=== PATIENT | male | born 1980 | race Caucasian/White ===

== ENCOUNTER 2021-01-19 20:55 | Emergency (ER) | payer SELFPAY ==
[~2021-01-19] VITALS: Ht 177.8 cm; Wt 81.6 kg
--- NOTE | 2021-01-19 21:05 | NUR ---
PATIENT BIBRA 88 C/O MIDEPIGASTRIC PAIN S/P "GETTING BENADRYL AND HALDOL SHOT" FROM [facility]. PATIENT IS A/O X 4, RR EVEN AND UNLABORED, NO SOB NOTED. PATIENT CONNECTED TO CARDIAC AND POX MONITOR.
[2021-01-19] MEDS ORDERED: LIDOCAINE VISCOUS 2% UD 15 ML UDC MM ONE (21:30)
[2021-01-19] MEDS ORDERED: MAG HYDROX/AL HYDROX/SIMETH 30 ML UDC PO ONE (21:30)
[2021-01-19] MEDS ORDERED: NAPROXEN 250 MG TABLET PO ONE (21:30)
[2021-01-19] MEDS ORDERED: FAMOTIDINE/PF INJ 20 MG/2 ML VIAL IV ONE ×2 (21:30→21:38)
--- NOTE | 2021-01-19 21:30 | NUR ---
EMT AT BEDSIDE FOR EKG.
[2021-01-19] MEDS ORDERED: MAG HYDROX/AL HYDROX/SIMETH 30 ML UDC ONE (21:37)
[2021-01-19] MEDS ORDERED: LIDOCAINE VISCOUS 2% UD 15 ML UDC ONE (21:37)
[2021-01-19] MEDS ORDERED: NAPROXEN 250 MG TABLET ONE (21:38)
[2021-01-19 22:41] LABS: BASOPHILS % (AUTO) 0.6 % (0.0-2.0); EOSINOPHILS % (AUTO) 2.6 % (0.0-6.0); HEMATOCRIT 45 % (39-51); HEMOGLOBIN 15.2 g/dL (13.5-17.5); LYMPHOCYTES # (AUTO) 2.5 K/uL (0.8-4.8); LYMPHOCYTES % (AUTO) 30.9 % (20.0-44.0); MEAN CORPUSCULAR HGB CONC 34 g/dl (31.0-36.0); MEAN CORPUSCULAR VOLUME 93 fL (80-96); MONOCYTES # (AUTO) 0.8 K/uL (0.1-1.30); MONOCYTES % (AUTO) 9.5 % (2.0-12.0); NEUTROPHILS # (AUTO) 4.5 K/uL (1.8-8.9); NEUTROPHILS % (AUTO) 56.4 % (43.0-81.0); PLATELET COUNT (AUTO) 265 K/uL (150-450); RED BLOOD CELL COUNT(AUTO) 4.82 MIL/uL (4.5-6.0)
[2021-01-19 22:55] LABS: CALCIUM, SERUM 8.8 mg/dL (8.5-10.1); CARBON DIOXIDE 25 mmol/L (21-32); CHLORIDE 102 mmol/L (98-107); GLUCOSE 153 mg/dL (74-106); POTASSIUM 3.4 mmol/L (3.5-5.1); SODIUM SERUM 138 mmol/L (136-145); UREA NITROGEN, BLOOD 14 mg/dL (7-18)
[2021-01-19 23:12] LABS: ALANINE AMINOTRANSFERASE 136 U/L (12-78); ALBUMIN 3.6 g/dL (3.4-5.0); ALKALINE PHOSPHATASE 131 U/L (46-116); ASPARTATE AMINOTRANSFERASE 79 U/L (15-37); BILIRUBIN,TOTAL 0.2 mg/dL (0.2-1.0); LIPASE 88 U/L (73-393); TOTAL PROTEIN, SERUM 7.5 g/dL (6.4-8.2)
--- NOTE | 2021-01-20 01:20 | NUR ---
Patient eloped from facility. ER MD notified.
[2021-01-20 02:24] VITALS: BP 147/75
== END 2021-01-20 01:22 | disposition left against medical advice (07) ==
LOC: ER 21:02
DX: K21.9 Gastro-esophageal reflux disease without esophagitis (principal); R07.89 Other chest pain; I10 Essential (primary) hypertension; E11.9 Type 2 diabetes mellitus without complications
CPT/HCPCS: 36415; 71045; 80048; 80076; 83690; 84484; 85025; 85378; 93005; 96374; 99285; J3490

== ENCOUNTER 2022-01-30 12:36 | Emergency (ER) | payer MEDICAID ==
[~2022-01-30] VITALS: Ht 170.2 cm; Wt 99.8 kg
--- NOTE | 2022-01-30 14:18 | NUR ---
dr killian at bedside for eval.
[2022-01-30] MEDS ORDERED: ONDANSETRON HCL/PF 4 MG/2 ML VIAL ONE ×2 (14:41→14:45)
[2022-01-30 14:45] LABS: BASOPHILS # (AUTO) 0.1 K/uL (0.0-0.2); BASOPHILS % (AUTO) 1.2 % (0.0-2.0); EOSINOPHILS % (AUTO) 1.3 % (0.0-6.0); HEMATOCRIT 44 % (39-51); LYMPHOCYTES % (AUTO) 31.8 % (20.0-44.0); MEAN CORPUSCULAR HGB CONC 34 g/dl (31.0-36.0); MEAN CORPUSCULAR VOLUME 89 fL (80-96); MONOCYTES # (AUTO) 0.8 K/uL (0.1-1.30); MONOCYTES % (AUTO) 13.1 % (2.0-12.0); NEUTROPHILS # (AUTO) 3.4 K/uL (1.8-8.9); NEUTROPHILS % (AUTO) 52.6 % (43.0-81.0); PLATELET COUNT (AUTO) 257 K/uL (150-450); RED BLOOD CELL COUNT(AUTO) 4.91 MIL/uL (4.5-6.0); WHITE BLOOD COUNT (AUTO) 6.4 K/uL (4.3-11.0)
[2022-01-30] MEDS: IV NS 0.9% 1,000 ML BAG IV ONE (14:53)
[2022-01-30] MEDS: ONDANSETRON HCL/PF 4 MG/2 ML VIAL IVP ONE (14:54)
--- NOTE | 2022-01-30 14:54 | NUR ---
iv line inserted on rac #20.
[2022-01-30 15:50] LABS: ALBUMIN 3.7 g/dL (3.4-5.0); BILIRUBIN,DIRECT 0.1 mg/dL (0.0-0.2); BILIRUBIN,TOTAL 0.4 mg/dL (0.2-1.0); CALCIUM, SERUM 8.6 mg/dL (8.5-10.1); POTASSIUM 3.8 mmol/L (3.5-5.1); TOTAL PROTEIN, SERUM 7.4 g/dL (6.4-8.2)
[2022-01-30] MEDS ORDERED: CIPR500T5 PO (16:05)
[2022-01-30] MEDS ORDERED: ONDA4TAB11 PO (16:05)
--- NOTE | 2022-01-30 16:10 | NUR ---
IV removed. Catheter intact and site benign. Pressure and 4x4 applied to site. No bleeding noted.
--- NOTE | 2022-01-30 16:16 | NUR ---
Patient discharged to home in stable condition. Written and verbal after care instructions given. Patient verbalizes understanding of instruction.IV removed. Catheter intact and site benign. Pressure and 4x4 applied to site. No bleeding noted.
[2022-01-30 16:41] VITALS: BP 129/70
== END 2022-01-30 16:41 | disposition home or self-care (01) ==
LOC: ER 12:51
DX: K52.9 Noninfective gastroenteritis and colitis, unspecified (principal); R11.2 Nausea with vomiting, unspecified; I10 Essential (primary) hypertension; E11.9 Type 2 diabetes mellitus without complications; F17.200 Nicotine dependence, unspecified, uncomplicated; Z88.0 Allergy status to penicillin; Z79.899 Other long term (current) drug therapy
CPT/HCPCS: 99283; 96374; 96361; 85025; 80048; 83690; 80076; 36415; J2405; J7030

== ENCOUNTER 2022-02-11 06:41 | Emergency (ER) | payer MEDICAID ==
[~2022-02-11] VITALS: Ht 177.8 cm; Wt 99.8 kg
[~2022-02-11 06:41] MED LIST: CIPR500T5 PO; ONDA4TAB11 PO
--- NOTE | 2022-02-11 07:45 | NUR ---
Received pt 41 yrs female from home c/o NUSEA AND VOMITING
[2022-02-11] MEDS ORDERED: ONDANSETRON 4 MG TAB.RAPDIS SL ONE (09:00)
[2022-02-11] MEDS ORDERED: ONDANSETRON 4 MG TAB.RAPDIS ONE (09:07)
[2022-02-11 09:13] LABS: BASOPHILS # (AUTO) 0.1 K/uL (0.0-0.2); BASOPHILS % (AUTO) 2.3 % (0.0-2.0); EOSINOPHILS % (AUTO) 1.5 % (0.0-6.0); HEMATOCRIT 44 % (39-51); HEMOGLOBIN 15.3 g/dL (13.5-17.5); LYMPHOCYTES # (AUTO) 2.1 K/uL (0.8-4.8); LYMPHOCYTES % (AUTO) 33.2 % (20.0-44.0); MEAN CORPUSCULAR HGB CONC 34 g/dl (31.0-36.0); MEAN CORPUSCULAR VOLUME 90 fL (80-96); MONOCYTES # (AUTO) 0.7 K/uL (0.1-1.30); MONOCYTES % (AUTO) 11.1 % (2.0-12.0); NEUTROPHILS # (AUTO) 3.3 K/uL (1.8-8.9); NEUTROPHILS % (AUTO) 51.9 % (43.0-81.0); PLATELET COUNT (AUTO) 304 K/uL (150-450); RED BLOOD CELL COUNT(AUTO) 4.97 MIL/uL (4.5-6.0); WHITE BLOOD COUNT (AUTO) 6.3 K/uL (4.3-11.0)
[2022-02-11 09:37] LABS: ALBUMIN 3.4 g/dL (3.4-5.0); BILIRUBIN,TOTAL 0.6 mg/dL (0.2-1.0); CALCIUM, SERUM 8.8 mg/dL (8.5-10.1); CREATININE 1.1 mg/dL (0.6-1.3); POTASSIUM 3.6 mmol/L (3.5-5.1); TOTAL PROTEIN, SERUM 7.2 g/dL (6.4-8.2)
[2022-02-11 09:50] VITALS: BP 129/80
[2022-02-11] MEDS ORDERED: DICY10SO PO (09:58)
[2022-02-11] MEDS ORDERED: ONDA4TAB11 PO (09:58)
== END 2022-02-11 10:12 | disposition home or self-care (01) ==
LOC: ER 06:41
DX: G89.29 Other chronic pain (principal); R10.9 Unspecified abdominal pain; I10 Essential (primary) hypertension; E11.9 Type 2 diabetes mellitus without complications; F17.200 Nicotine dependence, unspecified, uncomplicated; Z88.0 Allergy status to penicillin; Z79.899 Other long term (current) drug therapy
CPT/HCPCS: 99283; 85025; 83690; 36415; 80053; Q0162

== ENCOUNTER 2022-02-21 20:15 | Emergency (ER) | payer MEDICAID ==
[~2022-02-21 20:15] MED LIST changes: +DICY10SO PO
--- NOTE | 2022-02-21 21:00 | NUR ---
CALLED TO TRIAGE NO ANSWER
--- NOTE | 2022-02-21 21:22 | NUR ---
CALLED TO TRIAGE NO ANSWER
--- NOTE | 2022-02-21 21:30 | NUR ---
called to triage once again still no answer and not in waiting room.
== END 2022-02-21 21:30 | disposition left against medical advice (07) ==
LOC: ER 20:18
DX: Z53.21 Procedure and treatment not carried out due to patient leaving prior to being seen by health care provider (principal)

== ENCOUNTER 2022-02-22 05:15 | Emergency (ER) | payer MEDICAID ==
[~2022-02-22] VITALS: Ht 177.8 cm; Wt 95.3 kg
--- NOTE | 2022-02-22 05:20 | NUR ---
BIBS C/O SI WITH PLAN TO CUT HIMSELF. REQUESTING [facility] FOR VOLUNTARY PSYCH ADMISSION. PT AWAKE AND ALERT BREATHING UNLABORED. PT CHANGED INTO GOWN AND BELONGINGS PLACED IN LOCKER. SAFETY MEASURES IN PLACE.
--- NOTE | 2022-02-22 05:24 | NUR ---
REY COLLECTED AND SENT TO LAB
--- NOTE | 2022-02-22 05:24 | NUR ---
URINE COLLECTED AND SENT TO LAB
[2022-02-22] MEDS ORDERED: BACITRACIN ZINC OINT PACKET 1 EA PACKET TP ONE ×2 (06:30→06:31)
[2022-02-22] MEDS ORDERED: TDAP [DIPH/PERTUSSIS/TET] 0.5 ML VIAL IM ONE ×2 (06:30→06:32)
[2022-02-22 06:36] LABS: EOSINOPHILS % (AUTO) 3.3 % (0.0-6.0); HEMATOCRIT 41 % (39-51); HEMOGLOBIN 13.7 g/dL (13.5-17.5); LYMPHOCYTES # (AUTO) 2.9 K/uL (0.8-4.8); LYMPHOCYTES % (AUTO) 50.8 % (20.0-44.0); MEAN CORPUSCULAR HGB CONC 34 g/dl (31.0-36.0); MEAN CORPUSCULAR VOLUME 92 fL (80-96); MONOCYTES # (AUTO) 0.5 K/uL (0.1-1.30); NEUTROPHILS # (AUTO) 2.1 K/uL (1.8-8.9); NEUTROPHILS % (AUTO) 36.9 % (43.0-81.0); PLATELET COUNT (AUTO) 237 K/uL (150-450); WHITE BLOOD COUNT (AUTO) 5.8 K/uL (4.3-11.0)
[2022-02-22 06:52] LABS: BILIRUBIN,URINE 1+ (NEGATIVE); COLOR,URINE ORANGE (YELLOW); LEUKOCYTE ESTERASE ,URINE NEGATIVE (NEGATIVE); NITRITE, URINE NEGATIVE (NEGATIVE); PROTEIN,URINE NEGATIVE (NEGATIVE); UGLUCOSE NEGATIVE (NEGATIVE)
[2022-02-22 06:52] LABS: ALANINE AMINOTRANSFERASE 115 U/L (12-78); ALCOHOL, BLOOD < 3 mg/dL (0-0); ALKALINE PHOSPHATASE 116 U/L (46-116); ASPARTATE AMINOTRANSFERASE 69 U/L (15-37); BILIRUBIN,DIRECT 0.1 mg/dL (0.0-0.2); BILIRUBIN,TOTAL 0.3 mg/dL (0.2-1.0); CALCIUM, SERUM 8.6 mg/dL (8.5-10.1); CARBON DIOXIDE 30 mmol/L (21-32); CHLORIDE 107 mmol/L (98-107); CREATININE 0.9 mg/dL (0.6-1.3); GLUCOSE 108 mg/dL (74-106); POTASSIUM 3.4 mmol/L (3.5-5.1); SODIUM SERUM 141 mmol/L (136-145); TOTAL PROTEIN, SERUM 6.4 g/dL (6.4-8.2); UREA NITROGEN, BLOOD 9 mg/dL (7-18)
[2022-02-22 07:00] LABS: ACETAMINOPHEN < 10 ug/ml (10-30)
[2022-02-22 07:11] LABS: BACTERIA,URINE None seen /HPF (None Seen); WBC,URINE 0-2 /HPF (0-3)
--- NOTE | 2022-02-22 08:31 | NUR ---
FAXED CLINICALS TO [facility].
--- NOTE | 2022-02-22 09:07 | NUR ---
FAXED LABORATORY RESULTS TO [facility],
--- NOTE | 2022-02-22 09:40 | NUR ---
ACCEPTED TO [facility] UNDER DR. RAVI. PLEASE CALL [phone] FOR REPORT. MUFFLER MECHANIC WILL COLLECT PT AT 1015 PER JENIFER.
[2022-02-22 10:17] VITALS: BP 119/68
--- NOTE | 2022-02-22 10:17 | NUR ---
Patient discharged to [facility] in stable condition, picked up by transportation rep. Written and verbal after care instructions given. Patient verbalizes understanding of instruction.
== END 2022-02-22 10:18 ==
LOC: ER 05:17
DX: Z02.2 Encounter for examination for admission to residential institution (principal); R45.851 Suicidal ideations; E87.6 Hypokalemia; S61.402A Unspecified open wound of left hand, initial encounter; X78.9XXA Intentional self-harm by unspecified sharp object, initial encounter; Y92.89 Other specified places as the place of occurrence of the external cause; I10 Essential (primary) hypertension; Z88.0 Allergy status to penicillin; Z20.822 Contact with and (suspected) exposure to COVID-19
CPT/HCPCS: 99285; 90471; 90715; 85025; 80048; 80076; 81001; 36415; 87426; 80143; 80320; 80307; C9803; G0480

== ENCOUNTER 2022-03-05 00:04 | Emergency (ER) | payer MEDICAID ==
[~2022-03-05] VITALS: Ht 167.6 cm; Wt 90.7 kg
[2022-03-05 01:16] VITALS: BP 161/98
[2022-03-05] MEDS ORDERED: ONDA4TAB5 PO (01:30)
[2022-03-05] MEDS ORDERED: ONDANSETRON 4 MG TAB.RAPDIS SL ONE (01:30)
[2022-03-05] MEDS ORDERED: AMLO-213 PO (01:30)
[2022-03-05] MEDS ORDERED: ONDANSETRON 4 MG TAB.RAPDIS ONE (01:30)
--- NOTE | 2022-03-05 01:35 | NUR ---
Patient discharged to home in stable condition. Written and verbal after care instructions given. Patient verbalizes understanding of instruction.
== END 2022-03-05 01:36 | disposition home or self-care (01) ==
LOC: ER 00:05
DX: I10 Essential (primary) hypertension (principal); E86.0 Dehydration; K46.0 Unspecified abdominal hernia with obstruction, without gangrene; F17.200 Nicotine dependence, unspecified, uncomplicated; Z88.0 Allergy status to penicillin; Z60.2 Problems related to living alone
CPT/HCPCS: 99283; Q0162

== ENCOUNTER 2022-03-06 22:16 | Emergency (ER) | payer MEDICAID ==
[~2022-03-06 22:16] MED LIST changes: +AMLO-213 PO; +ONDA4TAB5 PO
--- NOTE | 2022-03-06 22:43 | NUR ---
called to triage, not in waiting room
--- NOTE | 2022-03-07 00:07 | NUR ---
called to triage, not in waiting room
== END 2022-03-07 00:08 | disposition left against medical advice (07) ==
LOC: ER 22:20
DX: Z53.21 Procedure and treatment not carried out due to patient leaving prior to being seen by health care provider (principal)

== ENCOUNTER 2022-03-07 08:40 | Emergency (ER) | payer MEDICAID ==
[~2022-03-07] VITALS: Ht 177.8 cm; Wt 93.0 kg
--- NOTE | 2022-03-07 08:52 | NUR ---
[facility]
--- NOTE | 2022-03-07 09:00 | NUR ---
URINE SAMPLE COLLECTED AND SENT TO LAB
[2022-03-07 09:26] LABS: BASOPHILS % (AUTO) 0.7 % (0.0-2.0); HEMATOCRIT 46 % (39-51); HEMOGLOBIN 15.6 g/dL (13.5-17.5); LYMPHOCYTES # (AUTO) 1.7 K/uL (0.8-4.8); LYMPHOCYTES % (AUTO) 25.8 % (20.0-44.0); MEAN CORPUSCULAR HGB CONC 34 g/dl (31.0-36.0); MEAN CORPUSCULAR VOLUME 91 fL (80-96); MONOCYTES # (AUTO) 0.5 K/uL (0.1-1.30); MONOCYTES % (AUTO) 7.8 % (2.0-12.0); NEUTROPHILS % (AUTO) 62.7 % (43.0-81.0); PLATELET COUNT (AUTO) 346 K/uL (150-450); RED BLOOD CELL COUNT(AUTO) 5.01 MIL/uL (4.5-6.0); WHITE BLOOD COUNT (AUTO) 6.4 K/uL (4.3-11.0)
[2022-03-07 10:05] LABS: BILIRUBIN,URINE NEGATIVE (NEGATIVE); COLOR,URINE YELLOW (YELLOW); LEUKOCYTE ESTERASE ,URINE NEGATIVE (NEGATIVE); NITRITE, URINE NEGATIVE (NEGATIVE); PH,URINE 6.5 (5.0-8.0); PROTEIN,URINE NEGATIVE (NEGATIVE); UGLUCOSE NEGATIVE (NEGATIVE)
[2022-03-07 10:06] LABS: ALANINE AMINOTRANSFERASE 116 U/L (12-78); ALBUMIN 3.6 g/dL (3.4-5.0); ALCOHOL, BLOOD < 3 mg/dL (0-0); ALKALINE PHOSPHATASE 139 U/L (46-116); ASPARTATE AMINOTRANSFERASE 57 U/L (15-37); BILIRUBIN,DIRECT 0.1 mg/dL (0.0-0.2); BILIRUBIN,TOTAL 0.4 mg/dL (0.2-1.0); CALCIUM, SERUM 9.1 mg/dL (8.5-10.1); CARBON DIOXIDE 29 mmol/L (21-32); CHLORIDE 98 mmol/L (98-107); GLUCOSE 129 mg/dL (74-106); POTASSIUM 3.3 mmol/L (3.5-5.1); SODIUM SERUM 129 mmol/L (136-145); TOTAL PROTEIN, SERUM 7.5 g/dL (6.4-8.2); UREA NITROGEN, BLOOD 9 mg/dL (7-18)
[2022-03-07 10:07] LABS: ACETAMINOPHEN 0 ug/ml (10-30)
[2022-03-07 10:54] LABS: BACTERIA,URINE Rare /HPF (None Seen); RBC,URINE 0-2 /HPF (0-2); SQUAMOUS EPITHELIAL CELL,UR Few /HPF (None Seen)
--- NOTE | 2022-03-07 12:00 | NUR ---
Lunch Provided Ate 100%
[2022-03-07 15:36] VITALS: BP 129/71
--- NOTE | 2022-03-07 16:55 | NUR ---
FAXED CLINICALS TO [facility] INTAKE.
--- NOTE | 2022-03-07 18:00 | NUR ---
NO acute changes from initial presentation NO obvious distress. Awaiting Placement to psych facility
--- NOTE | 2022-03-07 18:34 | NUR ---
ACCEPTED AT [facility] [phone] GONZALEZ TRANSPORT ETA PENDING
--- NOTE | 2022-03-07 18:39 | NUR ---
Yoni freedman in [facility] - 03/07/22 at 1841 by ESPERANZA [facility] ETA [phone]
--- NOTE | 2022-03-07 18:41 | NUR ---
[facility] ETA 2000
--- NOTE | 2022-03-07 19:39 | NUR ---
REPORT GIVEN TO DANIEL PAULINO
== END 2022-03-07 20:29 ==
LOC: ER 08:45
DX: R45.851 Suicidal ideations (principal); Z20.822 Contact with and (suspected) exposure to COVID-19; Z88.0 Allergy status to penicillin; I10 Essential (primary) hypertension
CPT/HCPCS: 99285; 85025; 80048; 80076; 81001; 36415; 87426; 80143; 80320; 80307; C9803; G0480

== ENCOUNTER 2022-03-14 03:02 | Emergency (ER) | payer MEDICAID ==
[~2022-03-14] VITALS: Ht 177.8 cm; Wt 90.7 kg
--- NOTE | 2022-03-14 04:17 | NUR ---
LUIS ARMANDO FROM STREET C/O SI WITH PLAN TO SLIT WRISTS; REQUESTING VOLUNTARY ADMISSION TO [facility]. PT A/OX3. PT IN GOWN, BELONGINGS PLACED IN, AND WANDED BY SECURITY. TOLERATING R/A WELL WITH NO RESP DISTRESS. SAFETY MEASURES IN PLACE.
--- NOTE | 2022-03-14 04:36 | NUR ---
COVID ANTIGEN AND URINE COLLECTED AND SENT TO LAB
[2022-03-14 04:43] LABS: BASOPHILS # (AUTO) 0.1 K/uL (0.0-0.2); BASOPHILS % (AUTO) 0.9 % (0.0-2.0); EOSINOPHILS % (AUTO) 1.6 % (0.0-6.0); HEMATOCRIT 49 % (39-51); HEMOGLOBIN 16.8 g/dL (13.5-17.5); LYMPHOCYTES # (AUTO) 1.8 K/uL (0.8-4.8); LYMPHOCYTES % (AUTO) 26.7 % (20.0-44.0); MEAN CORPUSCULAR HGB CONC 34 g/dl (31.0-36.0); MEAN CORPUSCULAR VOLUME 92 fL (80-96); MONOCYTES # (AUTO) 0.8 K/uL (0.1-1.30); MONOCYTES % (AUTO) 11.5 % (2.0-12.0); NEUTROPHILS # (AUTO) 4.1 K/uL (1.8-8.9); NEUTROPHILS % (AUTO) 59.3 % (43.0-81.0); PLATELET COUNT (AUTO) 336 K/uL (150-450); RED BLOOD CELL COUNT(AUTO) 5.32 MIL/uL (4.5-6.0); WHITE BLOOD COUNT (AUTO) 6.9 K/uL (4.3-11.0)
[2022-03-14 04:48] LABS: CALCIUM, SERUM 8.8 mg/dL (8.5-10.1); CARBON DIOXIDE 32 mmol/L (21-32); CHLORIDE 102 mmol/L (98-107); CREATININE 0.9 mg/dL (0.6-1.3); GLUCOSE 107 mg/dL (74-106); POTASSIUM 3.2 mmol/L (3.5-5.1); SODIUM SERUM 139 mmol/L (136-145); UREA NITROGEN, BLOOD 5 mg/dL (7-18)
[2022-03-14 04:54] LABS: BILIRUBIN,URINE NEGATIVE (NEGATIVE); COLOR,URINE YELLOW (YELLOW); LEUKOCYTE ESTERASE ,URINE NEGATIVE (NEGATIVE); NITRITE, URINE NEGATIVE (NEGATIVE); PH,URINE 6.5 (5.0-8.0); PROTEIN,URINE NEGATIVE (NEGATIVE); UGLUCOSE NEGATIVE (NEGATIVE)
[2022-03-14 04:54] LABS: ALANINE AMINOTRANSFERASE 89 U/L (12-78); ALBUMIN 4.2 g/dL (3.4-5.0); ALCOHOL, BLOOD < 3 mg/dL (0-0); ALKALINE PHOSPHATASE 138 U/L (46-116); ASPARTATE AMINOTRANSFERASE 51 U/L (15-37); BILIRUBIN,DIRECT 0.2 mg/dL (0.0-0.2); BILIRUBIN,TOTAL 0.7 mg/dL (0.2-1.0); TOTAL PROTEIN, SERUM 8.3 g/dL (6.4-8.2)
[2022-03-14 04:58] LABS: ACETAMINOPHEN 0 ug/ml (10-30)
[2022-03-14 05:01] LABS: SQUAMOUS EPITHELIAL CELL,UR Few /HPF (None Seen)
[2022-03-14 05:02] LABS: BACTERIA,URINE Rare /HPF (None Seen)
[2022-03-14 05:03] LABS: MUCUS,URINE Many /LPF (None Seen)
--- NOTE | 2022-03-14 07:00 | NUR ---
FACESHEET AND CLINICALS FAXED TO [facility] INTAKE
--- NOTE | 2022-03-14 08:10 | NUR ---
PT ACCEPTED TO [facility] UNDER DR. RAVI PLEASE CALL [phone] FOR REPORT AVAILABLE >[phone]
--- NOTE | 2022-03-14 08:30 | NUR ---
ATTEMPTED TO GIVEN PT REPORT AT NUMBER PROVIDED, NO RESPONSE, LEFT VOICE MESSAGE.
--- NOTE | 2022-03-14 09:08 | NUR ---
Patient discharged to [facility] in stable condition accompanied by transporter. Written and verbal after care instructions given. Patient verbalizes understanding of instruction.
[2022-03-14 09:11] VITALS: BP 140/90
== END 2022-03-14 09:12 ==
LOC: ER 03:05
DX: R45.851 Suicidal ideations (principal); F19.10 Other psychoactive substance abuse, uncomplicated; Z20.822 Contact with and (suspected) exposure to COVID-19; F31.9 Bipolar disorder, unspecified; F20.9 Schizophrenia, unspecified; I10 Essential (primary) hypertension; Z88.0 Allergy status to penicillin; F17.200 Nicotine dependence, unspecified, uncomplicated
CPT/HCPCS: 99285; 85025; 80048; 87086; 80076; 81001; 36415; 87426; 80143; 80320; 80307; C9803; G0480

== ENCOUNTER 2022-03-17 16:50 | Emergency (ER) | payer MEDICAID ==
[~2022-03-17] VITALS: Ht 177.8 cm; Wt 86.2 kg
[2022-03-17] MEDS ORDERED: IV NS 0.9% 1,000 ML BAG IV ONE (21:30)
[2022-03-17 21:54] LABS: BASOPHILS # (AUTO) 0.1 K/uL (0.0-0.2); BASOPHILS % (AUTO) 0.8 % (0.0-2.0); EOSINOPHILS % (AUTO) 2.3 % (0.0-6.0); HEMATOCRIT 48 % (39-51); HEMOGLOBIN 16.4 g/dL (13.5-17.5); LYMPHOCYTES # (AUTO) 2.3 K/uL (0.8-4.8); LYMPHOCYTES % (AUTO) 28.9 % (20.0-44.0); MEAN CORPUSCULAR HGB CONC 34 g/dl (31.0-36.0); MEAN CORPUSCULAR VOLUME 91 fL (80-96); MONOCYTES # (AUTO) 0.6 K/uL (0.1-1.30); MONOCYTES % (AUTO) 7.5 % (2.0-12.0); NEUTROPHILS # (AUTO) 4.9 K/uL (1.8-8.9); NEUTROPHILS % (AUTO) 60.5 % (43.0-81.0); PLATELET COUNT (AUTO) 302 K/uL (150-450); RED BLOOD CELL COUNT(AUTO) 5.29 MIL/uL (4.5-6.0)
[2022-03-17 22:06] LABS: CALCIUM, SERUM 8.6 mg/dL (8.5-10.1); CREATININE 0.9 mg/dL (0.6-1.3); POTASSIUM 3.6 mmol/L (3.5-5.1)
[2022-03-17 22:12] LABS: ALBUMIN 3.9 g/dL (3.4-5.0); BILIRUBIN,TOTAL 0.7 mg/dL (0.2-1.0); TOTAL PROTEIN, SERUM 7.9 g/dL (6.4-8.2)
[2022-03-17 23:57] VITALS: BP 121/98
--- NOTE | 2022-03-17 23:59 | NUR ---
Patient discharged to home in stable condition. Written and verbal after care instructions given. Patient verbalizes understanding of instruction.
== END 2022-03-18 | disposition home or self-care (01) ==
LOC: ER 17:33
DX: R42 Dizziness and giddiness (principal); F31.9 Bipolar disorder, unspecified; R19.7 Diarrhea, unspecified; I10 Essential (primary) hypertension; Z59.00 Homelessness unspecified; Z88.0 Allergy status to penicillin; F17.200 Nicotine dependence, unspecified, uncomplicated
CPT/HCPCS: 36415; 71045-TC; 80053-TC; 84484-TC; 85025-TC

== ENCOUNTER 2022-04-23 14:08 | Emergency (ER) | payer MEDICAID ==
[~2022-04-23] VITALS: Ht 177.8 cm; Wt 86.2 kg
--- NOTE | 2022-04-23 15:01 | NUR ---
DR FOY AT BEDSIDE
[2022-04-23 15:40] LABS: BASOPHILS # (AUTO) 0.1 K/uL (0.0-0.2); EOSINOPHILS % (AUTO) 0.1 % (0.0-6.0); HEMATOCRIT 50 % (39-51); HEMOGLOBIN 16.5 g/dL (13.5-17.5); LYMPHOCYTES # (AUTO) 1.3 K/uL (0.8-4.8); LYMPHOCYTES % (AUTO) 23.4 % (20.0-44.0); MEAN CORPUSCULAR HGB CONC 33 g/dl (31.0-36.0); MEAN CORPUSCULAR VOLUME 92 fL (80-96); MONOCYTES # (AUTO) 0.7 K/uL (0.1-1.30); MONOCYTES % (AUTO) 12.4 % (2.0-12.0); NEUTROPHILS # (AUTO) 3.6 K/uL (1.8-8.9); NEUTROPHILS % (AUTO) 63.1 % (43.0-81.0); PLATELET COUNT (AUTO) 327 K/uL (150-450); RED BLOOD CELL COUNT(AUTO) 5.37 MIL/uL (4.5-6.0); WHITE BLOOD COUNT (AUTO) 5.7 K/uL (4.3-11.0)
[2022-04-23] MEDS ORDERED: ONDANSETRON HCL/PF 4 MG/2 ML VIAL ONE (15:57)
[2022-04-23] MEDS: ONDANSETRON HCL/PF 4 MG/2 ML VIAL IVP ONE (16:04)
[2022-04-23] MEDS: IV NS 0.9% 1,000 ML BAG IV ONE (16:04)
--- NOTE | 2022-04-23 16:32 | NUR ---
patient in bed, awake, hooked to monitor. will continue to monitor accordingly
[2022-04-23 16:34] LABS: ALBUMIN 3.8 g/dL (3.4-5.0); BILIRUBIN,DIRECT 0.4 mg/dL (0.0-0.2); BILIRUBIN,TOTAL 1.2 mg/dL (0.2-1.0); CALCIUM, SERUM 9.4 mg/dL (8.5-10.1); CREATININE 1.1 mg/dL (0.6-1.3); POTASSIUM 3.1 mmol/L (3.5-5.1); TOTAL PROTEIN, SERUM 8.1 g/dL (6.4-8.2)
[2022-04-23] MEDS ORDERED: FAMO-131 PO (16:51)
[2022-04-23] MEDS ORDERED: ONDA4TAB11 PO (16:51)
--- NOTE | 2022-04-23 17:22 | NUR ---
patient in bed, awake, hooked to monitor. will continue to monitor accordingly
--- NOTE | 2022-04-23 18:27 | NUR ---
IV removed. Catheter intact and site benign. Pressure and 4x4 applied to site. No bleeding noted.Patient discharged to home in stable condition. Written and verbal after care instructions given. Patient verbalizes understanding of instruction.
[2022-04-23 18:36] VITALS: BP 151/100
== END 2022-04-23 18:36 | disposition home or self-care (01) ==
LOC: ER 14:19
DX: R11.2 Nausea with vomiting, unspecified (principal); I10 Essential (primary) hypertension; F31.9 Bipolar disorder, unspecified; F20.9 Schizophrenia, unspecified; F17.200 Nicotine dependence, unspecified, uncomplicated; Z88.0 Allergy status to penicillin; Z60.2 Problems related to living alone; Z79.899 Other long term (current) drug therapy
CPT/HCPCS: 99283; 96374; 96361; 85025; 80048; 83690; 80076; 36415; J2405; J7030

== ENCOUNTER 2022-05-07 22:31 | Emergency (ER) | payer MEDICAID ==
[~2022-05-07] VITALS: Ht 177.8 cm; Wt 86.2 kg
[~2022-05-07 22:31] MED LIST changes: +FAMO-131 PO
[2022-05-07] MEDS ORDERED: LORAZEPAM 1 MG TABLET ONE (23:58)
[2022-05-08] MEDS ORDERED: LORAZEPAM 1 MG TABLET PO ONE
--- NOTE | 2022-05-08 00:01 | NUR ---
URINE COLLECTED AND SENT TO LAB
[2022-05-08 00:07] LABS: BASOPHILS % (AUTO) 0.6 % (0.0-2.0); EOSINOPHILS % (AUTO) 2.2 % (0.0-6.0); HEMATOCRIT 47 % (39-51); HEMOGLOBIN 15.8 g/dL (13.5-17.5); LYMPHOCYTES # (AUTO) 2.5 K/uL (0.8-4.8); LYMPHOCYTES % (AUTO) 36.3 % (20.0-44.0); MEAN CORPUSCULAR HGB CONC 33 g/dl (31.0-36.0); MEAN CORPUSCULAR VOLUME 91 fL (80-96); MONOCYTES # (AUTO) 0.6 K/uL (0.1-1.30); MONOCYTES % (AUTO) 8.8 % (2.0-12.0); NEUTROPHILS # (AUTO) 3.6 K/uL (1.8-8.9); NEUTROPHILS % (AUTO) 52.1 % (43.0-81.0); PLATELET COUNT (AUTO) 330 K/uL (150-450); RED BLOOD CELL COUNT(AUTO) 5.21 MIL/uL (4.5-6.0); WHITE BLOOD COUNT (AUTO) 6.8 K/uL (4.3-11.0)
--- NOTE | 2022-05-08 00:07 | NUR ---
COVID SWAB DONE AND SENT TO LAB
[2022-05-08 00:15] LABS: BILIRUBIN,URINE NEGATIVE (NEGATIVE); COLOR,URINE DARK YELLOW (YELLOW); LEUKOCYTE ESTERASE ,URINE TRACE (NEGATIVE); NITRITE, URINE NEGATIVE (NEGATIVE); PROTEIN,URINE NEGATIVE (NEGATIVE); UGLUCOSE NEGATIVE (NEGATIVE); UROBILINOGEN,URINE 0.2 EU/dL (0.2)
[2022-05-08 00:23] LABS: CALCIUM, SERUM 9.2 mg/dL (8.5-10.1); CARBON DIOXIDE 28 mmol/L (21-32); CHLORIDE 98 mmol/L (98-107); GLUCOSE 110 mg/dL (74-106); POTASSIUM 3.3 mmol/L (3.5-5.1); SODIUM SERUM 135 mmol/L (136-145); UREA NITROGEN, BLOOD 6 mg/dL (7-18)
[2022-05-08 00:24] LABS: BACTERIA,URINE Rare /HPF (None Seen); RBC,URINE 0-2 /HPF (0-2); SQUAMOUS EPITHELIAL CELL,UR Rare /HPF (None Seen); WBC,URINE 0-2 /HPF (0-3)
[2022-05-08 00:28] LABS: ALANINE AMINOTRANSFERASE 127 U/L (12-78); ALBUMIN 3.8 g/dL (3.4-5.0); ALKALINE PHOSPHATASE 116 U/L (46-116); ASPARTATE AMINOTRANSFERASE 88 U/L (15-37); BILIRUBIN,DIRECT 0.2 mg/dL (0.0-0.2); BILIRUBIN,TOTAL 0.7 mg/dL (0.2-1.0); TOTAL PROTEIN, SERUM 7.8 g/dL (6.4-8.2)
[2022-05-08 00:30] LABS: ALCOHOL, BLOOD < 3 mg/dL (0-0)
--- NOTE | 2022-05-08 00:52 | NUR ---
FACESHEET AND CLINICLAS FAXED TO [facility] INTAKE.
--- NOTE | 2022-05-08 01:21 | NUR ---
ACCEPTED TO [facility] BY DR GONZALEZ REPORT [phone]
--- NOTE | 2022-05-08 02:54 | NUR ---
REPORT GIVEN TO MADELEINE NOGUERA
--- NOTE | 2022-05-08 02:56 | NUR ---
[facility] ETA 75-90 MINS
--- NOTE | 2022-05-08 03:40 | NUR ---
[facility] at bedside for patient transport to [facility].
[2022-05-08 03:41] VITALS: BP 145/88
== END 2022-05-08 03:47 ==
LOC: ER 22:40
DX: R45.851 Suicidal ideations (principal); F20.9 Schizophrenia, unspecified; F31.9 Bipolar disorder, unspecified; I10 Essential (primary) hypertension; Z88.0 Allergy status to penicillin; Z20.822 Contact with and (suspected) exposure to COVID-19
CPT/HCPCS: 99285; 85025; 80048; 80076; 81001; 36415; 87426; 80143; 80320; 80307; C9803; G0480

== ENCOUNTER 2022-08-13 15:03 | Emergency (ER) | payer MEDICAID ==
[~2022-08-13] VITALS: Ht 177.8 cm; Wt 86.2 kg
[2022-08-13] MEDS ORDERED: MORPHINE SULFATE INJ 2 MG/ML DISP.SYRIN IV ONE (16:00)
[2022-08-13] MEDS ORDERED: MORPHINE SULFATE INJ 4 MG/ML DISP.SYRIN ONE (16:05)
--- NOTE | 2022-08-13 16:13 | NUR ---
Patient came in to the er c/o neck pain. On room air.breathing evenly and unlabored. Kept comfortable, will continue to monitor accordingly. Connected to thee monitor and pulse ox.
[2022-08-13 16:20] LABS: BASOPHILS # (AUTO) 0.1 K/uL (0.0-0.2); BASOPHILS % (AUTO) 0.9 % (0.0-2.0); EOSINOPHILS % (AUTO) 0.8 % (0.0-6.0); HEMATOCRIT 42 % (39-51); HEMOGLOBIN 13.9 g/dL (13.5-17.5); LYMPHOCYTES # (AUTO) 1.3 K/uL (0.8-4.8); LYMPHOCYTES % (AUTO) 17.1 % (20.0-44.0); MEAN CORPUSCULAR HGB CONC 33 g/dl (31.0-36.0); MEAN CORPUSCULAR VOLUME 93 fL (80-96); MONOCYTES # (AUTO) 0.4 K/uL (0.1-1.30); MONOCYTES % (AUTO) 5.9 % (2.0-12.0); NEUTROPHILS # (AUTO) 5.6 K/uL (1.8-8.9); NEUTROPHILS % (AUTO) 75.3 % (43.0-81.0); PLATELET COUNT (AUTO) 431 K/uL (150-450); RED BLOOD CELL COUNT(AUTO) 4.53 MIL/uL (4.5-6.0); WHITE BLOOD COUNT (AUTO) 7.4 K/uL (4.3-11.0)
[2022-08-13 16:38] LABS: ALANINE AMINOTRANSFERASE 55 U/L (12-78); ALBUMIN 3.8 g/dL (3.4-5.0); ALCOHOL, BLOOD 79 mg/dL (0-0); ALKALINE PHOSPHATASE 143 U/L (46-116); ASPARTATE AMINOTRANSFERASE 31 U/L (15-37); BILIRUBIN,DIRECT 0.3 mg/dL (0.0-0.2); BILIRUBIN,TOTAL 0.9 mg/dL (0.2-1.0); CALCIUM, SERUM 9.2 mg/dL (8.5-10.1); CARBON DIOXIDE 23 mmol/L (21-32); CHLORIDE 100 mmol/L (98-107); CREATININE 0.7 mg/dL (0.6-1.3); GLUCOSE 78 mg/dL (74-106); POTASSIUM 3.6 mmol/L (3.5-5.1); SODIUM SERUM 139 mmol/L (136-145); TOTAL PROTEIN, SERUM 7.7 g/dL (6.4-8.2); UREA NITROGEN, BLOOD 13 mg/dL (7-18)
--- NOTE | 2022-08-13 17:05 | NUR ---
covid swab collected and sent to lab.
[2022-08-13] MEDS ORDERED: ONDANSETRON HCL/PF 4 MG/2 ML VIAL IV ONE (17:30)
[2022-08-13] MEDS ORDERED: KETOROLAC TROMETHAMINE INJ 30 MG/ML VIAL IV ONE (17:30)
[2022-08-13] MEDS ORDERED: KETOROLAC TROMETHAMINE INJ 30 MG/ML VIAL ONE (17:37)
[2022-08-13] MEDS ORDERED: ONDANSETRON HCL/PF 4 MG/2 ML VIAL ONE (17:37)
[2022-08-13 17:41] LABS: BILIRUBIN,URINE NEGATIVE (NEGATIVE); COLOR,URINE YELLOW (YELLOW); LEUKOCYTE ESTERASE ,URINE NEGATIVE (NEGATIVE); NITRITE, URINE NEGATIVE (NEGATIVE); PROTEIN,URINE NEGATIVE (NEGATIVE); UGLUCOSE NEGATIVE (NEGATIVE)
[2022-08-13] MEDS ORDERED: AMLO-213 PO (18:26)
--- NOTE | 2022-08-13 18:48 | NUR ---
MOVE SHEET SUBMITTED.
--- NOTE | 2022-08-13 18:51 | NUR ---
SABINA BORGES, HAD ISSUE WITH COMPUTER, NEED TO INPUT MANUALLY. THEY WILL CALL US BACK. NO DIRECT LINE GIVEN TO CALL.
[2022-08-13] MEDS ORDERED: [UNRECOGNIZED DRUG - REMARK] PO (18:52)
--- NOTE | 2022-08-13 19:49 | NUR ---
UPDATE GIVEN TO [facility] PECAN MALLOW DIPPER ABDI. TEL # [phone], FAX # [phone]
[2022-08-13] MEDS ORDERED: METOCLOPRAMIDE HCL 10 MG/2 ML VIAL IV ONE ×2 (20:30)
[2022-08-13] MEDS ORDERED: METOCLOPRAMIDE HCL 10 MG/2 ML VIAL ONE (21:31)
--- NOTE | 2022-08-13 21:57 | NUR ---
SPOKE TO SUDHA PATTON, PT [facility]. PT MADE AWARE AND HE AGREED. TRANSPORTATION WILL BE ARRANGE BY JONY PATTON, SHE WILL CALL BACK ABOUT ETA. [address] (NEAR [facility] IN [place])
--- NOTE | 2022-08-13 22:45 | NUR ---
ETA FOR TRANSPORT 1230 W/ [facility]
--- NOTE | 2022-08-13 23:02 | NUR ---
CALLED [facility] [phone]. SPOKE TO ERASMO. REPORT GIVEN TO STAFF
--- NOTE | 2022-08-14 00:14 | NUR ---
REPORT GIVEN TO AMWEST 57. IV NORMA REMOVED. BELONGINGS PROVIDED TO PT. PT WILL BE GOING TO [facility].
[2022-08-14 00:15] VITALS: BP 121/96
--- NOTE | 2022-08-14 00:15 | NUR ---
Patient discharged to home in stable condition. Written and verbal after care instructions given. Patient verbalizes understanding of instruction.
== END 2022-08-14 00:16 ==
LOC: ER 15:16
DX: S12.190A Other displaced fracture of second cervical vertebra, initial encounter for closed fracture (principal); G62.9 Polyneuropathy, unspecified; R62.7 Adult failure to thrive; I10 Essential (primary) hypertension; F31.9 Bipolar disorder, unspecified; F20.9 Schizophrenia, unspecified; F17.200 Nicotine dependence, unspecified, uncomplicated; Z60.2 Problems related to living alone; Z79.899 Other long term (current) drug therapy; Z68.27 Body mass index [BMI] 27.0-27.9, adult; Z20.822 Contact with and (suspected) exposure to COVID-19; Z88.0 Allergy status to penicillin; W45.8XXA Other foreign body or object entering through skin, initial encounter; Y93.89 Activity, other specified; Y92.89 Other specified places as the place of occurrence of the external cause; Y99.8 Other external cause status
CPT/HCPCS: 99285; 96374; 96375; 72125; 70450; 85025; 80048; 80076; 81003; 36415; 87081; 87426; 80143; 80320; 80307; J2270; J2765; J1885; J2405; L0172; C9803; G0480

== ENCOUNTER 2022-09-09 03:33 | Emergency (ER) | payer MEDICAID ==
[~2022-09-09] VITALS: Ht 177.8 cm; Wt 86.2 kg
[~2022-09-09 03:33] MED LIST changes: -CIPR500T5 PO; -DICY10SO PO; -FAMO-131 PO; -ONDA4TAB11 PO; -ONDA4TAB5 PO; +[UNRECOGNIZED DRUG - REMARK] PO
[2022-09-09 03:48] VITALS: BP 141/88
--- NOTE | 2022-09-09 04:03 | NUR ---
Patient discharged to home in stable condition. Written and verbal after care instructions given. Patient verbalizes understanding of instruction.
== END 2022-09-09 04:11 | disposition home or self-care (01) ==
LOC: ER 03:34
DX: G89.29 Other chronic pain (principal); M25.519 Pain in unspecified shoulder; I10 Essential (primary) hypertension; F31.9 Bipolar disorder, unspecified; F20.9 Schizophrenia, unspecified; Z88.0 Allergy status to penicillin

== ENCOUNTER 2022-09-10 14:20 | Emergency (ER) | payer MEDICAID ==
[~2022-09-10] VITALS: Ht 177.8 cm; Wt 86.2 kg
[2022-09-10 14:35] VITALS: BP 138/82
--- NOTE | 2022-09-10 15:31 | NUR ---
CALL FROM TONI RN,JONY, SHE SPOKE WITH PATIENT AND TOLD HIM THAT [employer] FOREMAN SHE SPOKE WITH IS UNABLE TO SEND HIM TO A REHAB PLACE REQUESTED. SALES REPRESENTATIVE PRINTING PAPER WILL COME AND SEE HIM TO GIVE HIM RESOURCES.
--- NOTE | 2022-09-10 15:45 | NUR ---
CASE MANAGEMENT CM CALLED ROHITH FROM [facility] AND SHE ADVISED THE TRANSFER TEAM RE: THIS PATIENT REQUESTING FOR PLACEMENT.
--- NOTE | 2022-09-10 15:45 | NUR ---
SW Consult: SW consult requested for patient possible homelessness. Patient presents alert and oriented x3 (self,place,time). Patient stated he was brought to the hospital because of his arm and neck pain. He stated that he was at a facility and was discharged two weeks ago. He was requesting for a nursing facility. Case Management Jama spoke with patient's insurance and they stated pt does not qualify for any skilled need. Patient stated that he is currently homeless and his mother "kicked him out". SW assessed for suicidal or homicidal, pt denied. SW assessed any hallucinations visual/auditory, pt denied. SW assessed for substance abuse and pt expressed that he smokes. Pt denied any use of drugs. SW offered pt resources and pt was accepting of shelters and substance abuse referrals. SW placed homeless waiver form in pt's chart. SW spoke with . Pt would want a neck brace. DC Plan: Pt will be discharging back to the streets. Resources were given. Substance Abuse resources provided included: [facility] Substance Abuse Self-Helpline ([facility]) ; CRI -HELP [address] [facility]. [place] [phone] ; [facility] [address] [facility] [address] ; [facility] [address]195 [facility] [phone] ; [facility] [phone] ; [facility] [address] Ontiveros [facility] [phone] ; [facility] 909 [facility] [phone] ; [facility] Substance Abuse Helpline([facility])-[facility] ; [facility] Family Counseling ; [facility] Moro; [facility] Lafferty; Cri-Help [place]; [facility] Main Ontiveros; [facility] Cor[place]; [facility] [place]; [facility] [place]; [facility]'s [place], [facility]. [place]; Alcoholics Anonymous -SFV; Mw-Whwh-Ofkexvb ; Marijuana Anonymous -SFV; Narcotics Anonymous www.na.org; Shelters: [place] Provider: [employer] [facility] [place] Address: [address] [place], [address] # of Beds: 47 Population Served: [facility] 6 | [facility] Provider: [facility] Last Address: [address] [place] [address], [address] # of Beds: 66 Population Served: [facility] eleni [place] Provider: First to Serve Address: [address] [facility], [address] # of Beds: 56 Population Served: [facility] Theo [place] Provider: SSJonnathan/[facility]. [facility] Address: [address] [place] [address], [address] # of Beds: 49 Population Served: [facility] 8 | [facility] Provider: First to Serve Address: [address] [place] [address], [address] # of Beds: 37 Population Served: [facility] Hygiene: [facility]: [address] [address] [place] ; [facility] [address] [facility] ; [facility] [address] . Food Resources: Loop [facility]- [address]. [place]; Meet Each Need with Dignity ([facility]) [address] [address] Burgessmd; [facility] Food Pantry 4390 [facility]; [facility] 8531 Eleni [facility] [place]. Mental Health resources provided: [facility] [address] [place], [place] [address] ; [facility] [address] [facility] [address], [place] [address] ; [facility] [address] [facility] [place], [place] [phone] ; [facility] [address] [place], [place] [address] Healthcare Clinics: [facility] [address], [address] [place]. [place] ; [facility] [address] [facility] [address] [place] [address]; [facility] [address] [facility]. [place] [phone] Counseling--Outpatient [facility] [address] [facility], [place] [address] (Specializes in in-depth psychotherapy for emotional distress: anxiety, depression, interpersonal conflicts, life transitions, childhood abuse) [facility] [address] [place] [address] (Assist with solving problem marital difficulties, separation & divorce, aging parents, & grief, chronic & terminal illness) [facility] [address] [place] [address] (Deal with loss & grief, anxiety, marital difficulties) Homebound/Mental Health Services [address] [address] [facility], [address] [place], [place] [id number] (Provide in-home mental services to people who are incapable of leaving their homes) Organization for Needs of the Elderly Senior Service/Resource Center [address] [place] [address] [facility] 6514 [facility] [address] SERVICES [facility] [place] Partial Hospitalization and Intensive Outpatient Program (Managed Care and [place] Only)[address] Anthony [facility] [phone] [facility] Partial Hospitalization and Outpatient [id number] Anthony jennifer. [address] [place], [place] [phone] [facility] Mental Health [place] [id number] MilindSelect Medical [facility]Health Rehabilitation Hospitaljennifer. [address] [place], [place] [phone] [facility] Partial Hospitalization and Outpatient Cdemobi60931 [facility] Rama [phone]
--- NOTE | 2022-09-10 16:18 | NUR ---
CASE MANAGEMENT RECEIVED A CALL BACK FROM [facility] AND PROVIDED WITH UPDATE. PER DR. WHITE PATIENT IS C/O SUICIDAL IDEATION, ORDERED LABS FOR PSYCH CLEARANCE. INFORMED [facility], PATIENT STATED HE WAS ABLE TO AMBULATE FROM THE BUS STOP TO ER.
--- NOTE | 2022-09-10 16:28 | NUR ---
[facility] [phone].
[2022-09-10 16:46] LABS: BASOPHILS # (AUTO) 0.1 K/uL (0.0-0.2); BASOPHILS % (AUTO) 0.8 % (0.0-2.0); EOSINOPHILS % (AUTO) 1.4 % (0.0-6.0); HEMATOCRIT 44 % (39-51); HEMOGLOBIN 14.8 g/dL (13.5-17.5); LYMPHOCYTES # (AUTO) 2.3 K/uL (0.8-4.8); LYMPHOCYTES % (AUTO) 31.2 % (20.0-44.0); MEAN CORPUSCULAR HGB CONC 34 g/dl (31.0-36.0); MEAN CORPUSCULAR VOLUME 90 fL (80-96); MONOCYTES # (AUTO) 0.6 K/uL (0.1-1.30); MONOCYTES % (AUTO) 7.9 % (2.0-12.0); NEUTROPHILS # (AUTO) 4.4 K/uL (1.8-8.9); NEUTROPHILS % (AUTO) 58.7 % (43.0-81.0); PLATELET COUNT (AUTO) 344 K/uL (150-450); RED BLOOD CELL COUNT(AUTO) 4.84 MIL/uL (4.5-6.0); WHITE BLOOD COUNT (AUTO) 7.5 K/uL (4.3-11.0)
[2022-09-10 17:07] LABS: ALANINE AMINOTRANSFERASE 31 U/L (12-78); ALBUMIN 4.2 g/dL (3.4-5.0); ALCOHOL, BLOOD 38 mg/dL (0-10); ALKALINE PHOSPHATASE 109 U/L (46-116); ASPARTATE AMINOTRANSFERASE 21 U/L (15-37); BILIRUBIN,DIRECT 0.1 mg/dL (0.0-0.2); BILIRUBIN,TOTAL 0.4 mg/dL (0.2-1.0); CALCIUM, SERUM 9.5 mg/dL (8.5-10.1); CARBON DIOXIDE 27 mmol/L (21-32); CHLORIDE 102 mmol/L (98-107); CREATININE 1.1 mg/dL (0.6-1.3); GLUCOSE 78 mg/dL (74-106); POTASSIUM 3.9 mmol/L (3.5-5.1); SODIUM SERUM 141 mmol/L (136-145); TOTAL PROTEIN, SERUM 8.1 g/dL (6.4-8.2); UREA NITROGEN, BLOOD 6 mg/dL (7-18)
[2022-09-10] MEDS ORDERED: ACETAMINOPHEN ES 500 MG TABLET PO ONE (17:30)
[2022-09-10] MEDS ORDERED: ACETAMINOPHEN ES 500 MG TABLET ONE (18:03)
--- NOTE | 2022-09-10 18:30 | NUR ---
RODRIGO [phone] CM [facility]
[2022-09-10 19:04] LABS: BILIRUBIN,URINE NEGATIVE (NEGATIVE); COLOR,URINE YELLOW (YELLOW); LEUKOCYTE ESTERASE ,URINE NEGATIVE (NEGATIVE); NITRITE, URINE NEGATIVE (NEGATIVE); PROTEIN,URINE NEGATIVE (NEGATIVE); UGLUCOSE NEGATIVE (NEGATIVE)
--- NOTE | 2022-09-11 10:28 | NUR ---
[facility]MINA BORGES [phone] CALLED FOR UPDATE
--- NOTE | 2022-09-11 12:10 | NUR ---
OLIVIA OKEEFE FROM [facility] [phone] CALLED AND INFORMED THAT PT IS ACCEPTED AT [facility] BUT WE ARE STILL WAITING FOR BED AVAILABILITY
--- NOTE | 2022-09-11 12:11 | NUR ---
ACCEPTED AT [facility], DR CARRIZALES # FOR REPORT [phone] WILL CALL BACK WHEN BED IS AVAILABLE. SO TO ARRANGE TRANSPORT.
--- NOTE | 2022-09-11 16:17 | NUR ---
CALLED FOR TRANSPORT ETA 60 MINS.
--- NOTE | 2022-09-11 17:24 | NUR ---
REPORT GIVEN TO JUDI SALVADOR IN [facility]
--- NOTE | 2022-09-11 17:32 | NUR ---
PICKED UP BY TRANSPORT.
== END 2022-09-11 17:36 | disposition short-term general hospital (02) ==
LOC: ER 14:38
DX: R45.851 Suicidal ideations (principal); G89.29 Other chronic pain; M54.2 Cervicalgia; M25.512 Pain in left shoulder; I10 Essential (primary) hypertension; F32.A Depression, unspecified; F20.9 Schizophrenia, unspecified; F17.200 Nicotine dependence, unspecified, uncomplicated; Z60.2 Problems related to living alone; Z79.899 Other long term (current) drug therapy; Z20.822 Contact with and (suspected) exposure to COVID-19; Z88.0 Allergy status to penicillin
CPT/HCPCS: 99285; 85025; 80048; 80076; 81003; 36415; 87426; 80143; 80320; 80307; C9803; G0480

== ENCOUNTER 2022-12-09 17:43 | Emergency (ER) | payer MEDICAID ==
[~2022-12-09] VITALS: Ht 177.8 cm; Wt 86.2 kg
[2022-12-09 19:39] VITALS: BP 129/74; TEMP 98.4; O2SAT 100
[2022-12-09 19:53] LABS: BASOPHILS % (AUTO) 0.6 % (0.0-2.0); EOSINOPHILS # (AUTO) 0.1 K/uL (0.0-0.7); EOSINOPHILS % (AUTO) 2.3 % (0.0-6.0); HEMATOCRIT 49 % (39-51); HEMOGLOBIN 16.9 g/dL (13.5-17.5); LYMPHOCYTES # (AUTO) 2.6 K/uL (0.8-4.8); LYMPHOCYTES % (AUTO) 47.2 % (20.0-44.0); MEAN CORPUSCULAR HEMOGLOBIN 31 PG (26.0-33.0); MEAN CORPUSCULAR HGB CONC 34 g/dl (31.0-36.0); MEAN CORPUSCULAR VOLUME 89 fL (80-96); MONOCYTES # (AUTO) 0.4 K/uL (0.1-1.30); MONOCYTES % (AUTO) 7.2 % (2.0-12.0); NEUTROPHILS # (AUTO) 2.4 K/uL (1.8-8.9); NEUTROPHILS % (AUTO) 42.7 % (43.0-81.0); PLATELET COUNT (AUTO) 308 K/uL (150-450); RED BLOOD CELL COUNT(AUTO) 5.49 MIL/uL (4.5-6.0); RED CELL DISTRIBUTION WIDTH 14.6 % (11.5-15.0); WHITE BLOOD COUNT (AUTO) 5.5 K/uL (4.3-11.0)
[2022-12-09 20:01] LABS: APPEARANCE,URINE CLEAR (CLEAR); BILIRUBIN,URINE NEGATIVE (NEGATIVE); BLOOD, URINE NEGATIVE Ery/uL (NEGATIVE); COLOR,URINE YELLOW (YELLOW); KETONES,URINE NEGATIVE (NEGATIVE); LEUKOCYTE ESTERASE ,URINE NEGATIVE (NEGATIVE); NITRITE, URINE NEGATIVE (NEGATIVE); PROTEIN,URINE NEGATIVE (NEGATIVE); UGLUCOSE NEGATIVE (NEGATIVE); UROBILINOGEN,URINE 0.2 EU/dL (0.2)
[2022-12-09 20:18] LABS: BARBITURATE, URINE NEGATIVE (NEGATIVE); BENZODIAZEPINE, URINE NEGATIVE (NEGATIVE); COCCAINE, URINE NEGATIVE (NEGATIVE); OPIATE, URINE NEGATIVE (NEGATIVE); PHENCYCLIDINE SCREEN,URINE NEGATIVE (NEGATIVE)
[2022-12-09 20:18] LABS: ALANINE AMINOTRANSFERASE 37 U/L (12-78); ALBUMIN 4.1 g/dL (3.4-5.0); ALCOHOL, BLOOD 65 mg/dL (0-10); ALKALINE PHOSPHATASE 104 U/L (46-116); ASPARTATE AMINOTRANSFERASE 22 U/L (15-37); BILIRUBIN,DIRECT 0.1 mg/dL (0.0-0.2); BILIRUBIN,TOTAL 0.6 mg/dL (0.2-1.0); CALCIUM, SERUM 9.3 mg/dL (8.5-10.1); CARBON DIOXIDE 30 mmol/L (21-32); CHLORIDE 102 mmol/L (98-107); CREATININE 0.9 mg/dL (0.6-1.3); GLUCOSE 94 mg/dL (74-106); POTASSIUM 3.5 mmol/L (3.5-5.1); SODIUM SERUM 139 mmol/L (136-145); TOTAL PROTEIN, SERUM 8.4 g/dL (6.4-8.2); UREA NITROGEN, BLOOD 7 mg/dL (7-18)
[2022-12-09 20:19] LABS: AMPHETAMINE, URINE POSITIVE (NEGATIVE); CANNABINOID, URINE POSITIVE (NEGATIVE)
[2022-12-09 20:19] LABS: ACETAMINOPHEN 0 ug/ml (10-30); SALICYLATE < 2.3 mg/dL (2.8-20.0)
== END 2022-12-09 21:54 ==
LOC: ER 17:44
DX: R45.851 Suicidal ideations (principal); F31.9 Bipolar disorder, unspecified; F20.9 Schizophrenia, unspecified; I10 Essential (primary) hypertension; F17.200 Nicotine dependence, unspecified, uncomplicated; Z20.822 Contact with and (suspected) exposure to COVID-19; Z79.899 Other long term (current) drug therapy; Z98.890 Other specified postprocedural states; Z60.2 Problems related to living alone; Z88.0 Allergy status to penicillin
CPT/HCPCS: 99285; 85025; 80048; 80076; 81003; 36415; 87426; 80143; 80320; 80307; C9803; G0480

== ENCOUNTER 2022-12-17 19:35 | Emergency (ER) | payer MEDICAID ==
[~2022-12-17] VITALS: Ht 162.6 cm; Wt 70.3 kg
[2022-12-17 21:30] LABS: BASOPHILS # (AUTO) 0.1 K/uL (0.0-0.2); BASOPHILS % (AUTO) 1.1 % (0.0-2.0); EOSINOPHILS # (AUTO) 0.1 K/uL (0.0-0.7); EOSINOPHILS % (AUTO) 1.7 % (0.0-6.0); HEMATOCRIT 50 % (39-51); HEMOGLOBIN 17.2 g/dL (13.5-17.5); LYMPHOCYTES # (AUTO) 3.2 K/uL (0.8-4.8); LYMPHOCYTES % (AUTO) 44.7 % (20.0-44.0); MEAN CORPUSCULAR HEMOGLOBIN 31 PG (26.0-33.0); MEAN CORPUSCULAR HGB CONC 34 g/dl (31.0-36.0); MEAN CORPUSCULAR VOLUME 89 fL (80-96); MONOCYTES # (AUTO) 0.8 K/uL (0.1-1.30); MONOCYTES % (AUTO) 11.1 % (2.0-12.0); NEUTROPHILS % (AUTO) 41.4 % (43.0-81.0); PLATELET COUNT (AUTO) 288 K/uL (150-450); RED BLOOD CELL COUNT(AUTO) 5.63 MIL/uL (4.5-6.0); RED CELL DISTRIBUTION WIDTH 14.4 % (11.5-15.0); WHITE BLOOD COUNT (AUTO) 7.2 K/uL (4.3-11.0)
[2022-12-17 21:50] LABS: ALANINE AMINOTRANSFERASE 46 U/L (12-78); ALBUMIN 4.2 g/dL (3.4-5.0); ALCOHOL, BLOOD 60 mg/dL (0-10); ALKALINE PHOSPHATASE 99 U/L (46-116); ASPARTATE AMINOTRANSFERASE 23 U/L (15-37); BILIRUBIN,DIRECT 0.1 mg/dL (0.0-0.2); BILIRUBIN,TOTAL 0.2 mg/dL (0.2-1.0); CALCIUM, SERUM 9.4 mg/dL (8.5-10.1); CARBON DIOXIDE 25 mmol/L (21-32); CHLORIDE 103 mmol/L (98-107); CREATININE 1.1 mg/dL (0.6-1.3); GLUCOSE 105 mg/dL (74-106); POTASSIUM 3.8 mmol/L (3.5-5.1); SODIUM SERUM 141 mmol/L (136-145); TOTAL PROTEIN, SERUM 8.5 g/dL (6.4-8.2); UREA NITROGEN, BLOOD 11 mg/dL (7-18)
[2022-12-17 21:54] LABS: ACETAMINOPHEN 0 ug/ml (10-30); SALICYLATE < 2.3 mg/dL (2.8-20.0)
[2022-12-17 22:57] LABS: APPEARANCE,URINE CLEAR (CLEAR); BILIRUBIN,URINE NEGATIVE (NEGATIVE); BLOOD, URINE NEGATIVE Ery/uL (NEGATIVE); COLOR,URINE YELLOW (YELLOW); KETONES,URINE TRACE mg/dL (NEGATIVE); LEUKOCYTE ESTERASE ,URINE NEGATIVE (NEGATIVE); NITRITE, URINE NEGATIVE (NEGATIVE); PROTEIN,URINE NEGATIVE (NEGATIVE); UGLUCOSE NEGATIVE (NEGATIVE)
[2022-12-17 23:16] LABS: BARBITURATE, URINE NEGATIVE (NEGATIVE); BENZODIAZEPINE, URINE NEGATIVE (NEGATIVE); COCCAINE, URINE NEGATIVE (NEGATIVE); OPIATE, URINE NEGATIVE (NEGATIVE); PHENCYCLIDINE SCREEN,URINE NEGATIVE (NEGATIVE)
[2022-12-17 23:18] LABS: AMPHETAMINE, URINE POSITIVE (NEGATIVE); CANNABINOID, URINE POSITIVE (NEGATIVE)
[2022-12-18] MEDS ORDERED: ONDANSETRON 4 MG TAB.RAPDIS SL ONE
[2022-12-18] MEDS ORDERED: ONDANSETRON 4 MG TAB.RAPDIS ONE (00:27)
[2022-12-18] MEDS ORDERED: ACETAMINOPHEN ES 500 MG TABLET ONE (01:57)
[2022-12-18] MEDS ORDERED: ACETAMINOPHEN ES 500 MG TABLET PO ONE (02:00)
[2022-12-18 03:07] VITALS: BP 131/68; TEMP 98.1; O2SAT 98
[2022-12-19] MEDS ORDERED: HYDR-3980 PO (13:44)
[2022-12-19] MEDS ORDERED: NALO4SPR BNOSTRILS (13:44)
[2022-12-19] MEDS ORDERED: FAMO-131 PO (13:44)
[2022-12-19] MEDS ORDERED: ONDA4TAB5 PO (13:44)
== END 2022-12-18 03:42 | disposition home or self-care (01) ==
LOC: ER 19:43
DX: S16.1XXA Strain of muscle, fascia and tendon at neck level, initial encounter (principal); R45.851 Suicidal ideations; F15.10 Other stimulant abuse, uncomplicated; F19.10 Other psychoactive substance abuse, uncomplicated; I10 Essential (primary) hypertension; F31.9 Bipolar disorder, unspecified; F20.9 Schizophrenia, unspecified; F17.200 Nicotine dependence, unspecified, uncomplicated; Z88.0 Allergy status to penicillin; Z20.822 Contact with and (suspected) exposure to COVID-19; W13.8XXA Fall from, out of or through other building or structure, initial encounter; Y93.89 Activity, other specified; Y92.89 Other specified places as the place of occurrence of the external cause; Y99.8 Other external cause status
CPT/HCPCS: 99285; 72125; 70450; 85025; 80048; 80076; 81003; 36415; 87426; 80143; 80320; 80307; C9803; Q0162; G0480

== ENCOUNTER 2022-12-19 12:58 | Emergency (ER) | payer MEDICAID ==
[~2022-12-19] VITALS: Ht 177.8 cm; Wt 86.2 kg
[2022-12-19 13:10] VITALS: TEMP 98.2
[2022-12-19] MEDS ORDERED: KETOROLAC TROMETHAMINE INJ 30 MG/ML VIAL ONE (13:29)
[2022-12-19] MEDS ORDERED: HYDROCODONE/APAP 5/325MG TABLET PO ONE (13:30)
[2022-12-19] MEDS ORDERED: KETOROLAC TROMETHAMINE INJ 30 MG/ML VIAL IM ONE (13:30)
[2022-12-19] MEDS ORDERED: ONDA4TAB5 PO (13:44)
[2022-12-19] MEDS ORDERED: HYDR-3980 PO (13:44)
[2022-12-19] MEDS ORDERED: FAMO-131 PO (13:44)
[2022-12-19] MEDS ORDERED: NALO4SPR BNOSTRILS (13:44)
[2022-12-19 13:50] VITALS: BP 125/60; O2SAT 97
[2022-12-19] MEDS ORDERED: LIDOCAINE VISCOUS 2% UD 15 ML UDC MM ONE (14:00)
[2022-12-19] MEDS ORDERED: FAMOTIDINE (20 MG) 20 MG TABLET PO ONE (14:00)
[2022-12-19] MEDS ORDERED: MAG HYDROX/AL HYDROX/SIMETH 30 ML UDC PO ONE (14:00)
[2022-12-19] MEDS ORDERED: ONDANSETRON 4 MG TAB.RAPDIS SL ONE (14:00)
== END 2022-12-19 13:52 | disposition home or self-care (01) ==
LOC: ER 13:07
DX: M54.2 Cervicalgia (principal); G89.29 Other chronic pain; K29.70 Gastritis, unspecified, without bleeding; Z76.0 Encounter for issue of repeat prescription; F20.9 Schizophrenia, unspecified; F31.9 Bipolar disorder, unspecified; I10 Essential (primary) hypertension; F17.200 Nicotine dependence, unspecified, uncomplicated; Z79.899 Other long term (current) drug therapy; Z88.0 Allergy status to penicillin
CPT/HCPCS: 99284; 96372; J1885

== ENCOUNTER 2022-12-20 12:25 | Emergency (ER) | payer MEDICAID ==
[~2022-12-20] VITALS: Ht 170.2 cm; Wt 86.2 kg
[~2022-12-20 12:25] MED LIST changes: +FAMO-131 PO; +HYDR-3980 PO; +NALO4SPR BNOSTRILS; +ONDA4TAB5 PO
[2022-12-20 14:59] LABS: BASOPHILS % (AUTO) 0.7 % (0.0-2.0); EOSINOPHILS # (AUTO) 0.1 K/uL (0.0-0.7); EOSINOPHILS % (AUTO) 1.3 % (0.0-6.0); HEMATOCRIT 51 % (39-51); HEMOGLOBIN 17.1 g/dL (13.5-17.5); LYMPHOCYTES # (AUTO) 1.4 K/uL (0.8-4.8); LYMPHOCYTES % (AUTO) 23.4 % (20.0-44.0); MEAN CORPUSCULAR HEMOGLOBIN 30 PG (26.0-33.0); MEAN CORPUSCULAR HGB CONC 34 g/dl (31.0-36.0); MEAN CORPUSCULAR VOLUME 90 fL (80-96); MONOCYTES # (AUTO) 0.3 K/uL (0.1-1.30); MONOCYTES % (AUTO) 4.5 % (2.0-12.0); NEUTROPHILS # (AUTO) 4.1 K/uL (1.8-8.9); NEUTROPHILS % (AUTO) 70.1 % (43.0-81.0); PLATELET COUNT (AUTO) 264 K/uL (150-450); RED BLOOD CELL COUNT(AUTO) 5.65 MIL/uL (4.5-6.0); RED CELL DISTRIBUTION WIDTH 14.3 % (11.5-15.0); WHITE BLOOD COUNT (AUTO) 5.8 K/uL (4.3-11.0)
[2022-12-20 15:21] LABS: CALCIUM, SERUM 9.4 mg/dL (8.5-10.1); CARBON DIOXIDE 29 mmol/L (21-32); CHLORIDE 99 mmol/L (98-107); CREATININE 0.8 mg/dL (0.6-1.3); GLUCOSE 85 mg/dL (74-106); POTASSIUM 3.3 mmol/L (3.5-5.1); SODIUM SERUM 139 mmol/L (136-145); UREA NITROGEN, BLOOD 8 mg/dL (7-18)
[2022-12-20 15:25] LABS: ACETAMINOPHEN 0 ug/ml (10-30); ALANINE AMINOTRANSFERASE 84 U/L (12-78); ALBUMIN 4.9 g/dL (3.4-5.0); ALCOHOL, BLOOD < 3 mg/dL (0-10); ALKALINE PHOSPHATASE 131 U/L (46-116); ASPARTATE AMINOTRANSFERASE 38 U/L (15-37); BILIRUBIN,DIRECT 0.2 mg/dL (0.0-0.2); BILIRUBIN,TOTAL 0.6 mg/dL (0.2-1.0); SALICYLATE < 2.3 mg/dL (2.8-20.0); TOTAL PROTEIN, SERUM 9.7 g/dL (6.4-8.2)
[2022-12-20] MEDS ORDERED: ONDANSETRON HCL/PF - ER 4 MG/2 ML VIAL IV ONE (15:30)
[2022-12-20] MEDS ORDERED: IV NS 0.9% 1,000 ML IV ONE (15:30)
[2022-12-20] MEDS ORDERED: ONDANSETRON HCL/PF 4 MG/2 ML VIAL ONE (15:39)
[2022-12-20 15:46] LABS: AMPHETAMINE, URINE POSITIVE (NEGATIVE); BARBITURATE, URINE NEGATIVE (NEGATIVE); BENZODIAZEPINE, URINE NEGATIVE (NEGATIVE); CANNABINOID, URINE POSITIVE (NEGATIVE); COCCAINE, URINE NEGATIVE (NEGATIVE); OPIATE, URINE POSITIVE (NEGATIVE); PHENCYCLIDINE SCREEN,URINE NEGATIVE (NEGATIVE)
[2022-12-20 16:18] LABS: APPEARANCE,URINE CLEAR (CLEAR); BILIRUBIN,URINE NEGATIVE (NEGATIVE); BLOOD, URINE NEGATIVE Ery/uL (NEGATIVE); COLOR,URINE YELLOW (YELLOW); KETONES,URINE NEGATIVE (NEGATIVE); LEUKOCYTE ESTERASE ,URINE NEGATIVE (NEGATIVE); NITRITE, URINE NEGATIVE (NEGATIVE); PH,URINE 8.5 (5.0-8.0); PROTEIN,URINE TRACE mg/dl (NEGATIVE); UGLUCOSE NEGATIVE (NEGATIVE)
[2022-12-20 16:24] LABS: ADD URINE CULTURE NO; BACTERIA,URINE None seen /HPF (None Seen); RBC,URINE 0-2 /HPF (0-2); WBC,URINE 0-2 /HPF (0-3)
[2022-12-20 16:25] LABS: MUCUS,URINE Few /LPF (None Seen); SQUAMOUS EPITHELIAL CELL,UR 0-2 /HPF (None Seen)
[2022-12-20] MEDS ORDERED: ONDANSETRON 4 MG TAB.RAPDIS ONE (20:53)
[2022-12-20] MEDS ORDERED: ONDANSETRON 4 MG TAB.RAPDIS PO ONE (21:00)
[2022-12-20 22:00] LABS: ANISOCYTOSIS 1+; EOSINOPHILS % (MANUAL) 3 % (0-4); LYMPHOCYTES % (MANUAL) 32 % (16-48); MONOCYTES % (MANUAL) 5 % (0-11.0); NEUTROPHILS % (MANUAL) 60 (42-76); PLATELET ESTIMATE ADEQUATE
[2022-12-21] MEDS ORDERED: ONDANSETRON 4 MG TAB.RAPDIS SL ONE (12:30)
[2022-12-21] MEDS ORDERED: ONDANSETRON 4 MG TAB.RAPDIS ONE (12:40)
[2022-12-21 19:07] VITALS: BP 144/103; TEMP 98.3; O2SAT 100
== END 2022-12-21 19:08 | disposition home or self-care (01) ==
LOC: ER 12:34
DX: R45.851 Suicidal ideations (principal); E86.0 Dehydration; I10 Essential (primary) hypertension; F31.9 Bipolar disorder, unspecified; F20.9 Schizophrenia, unspecified; F17.200 Nicotine dependence, unspecified, uncomplicated; Z88.0 Allergy status to penicillin; Z20.822 Contact with and (suspected) exposure to COVID-19
CPT/HCPCS: 36415; 80048; 80076; 80143; 80307; 80320; 81001; 85007; 85025; 87426; 96361; 96374; 99285; C9803; J2405; J7030; Q0162; G0480

== ENCOUNTER 2023-04-07 07:24 | Emergency (ER) | payer MEDICAID, OTHER ==
[~2023-04-07] VITALS: Ht 177.8 cm; Wt 86.2 kg
[~2023-04-07 07:24] MED LIST changes: +HYDR-3972 PO
[2023-04-07] MEDS ORDERED: ACETAMINOPHEN 325 MG TABLET PO ONE (08:00)
[2023-04-07] MEDS ORDERED: LORAZEPAM 1 MG TABLET PO ONE (08:00)
[2023-04-07] MEDS ORDERED: KETOROLAC TROMETHAMINE 15 MG/ML VIAL IM ONE (08:00)
[2023-04-07] MEDS ORDERED: LIDOCAINE 5% (PATCH) 1 EA PATCH TP SCH (08:00)
[2023-04-07] MEDS ORDERED: LIDOCAINE 5% (PATCH) 1 EA PATCH TP ONE (08:03)
[2023-04-07] MEDS ORDERED: KETOROLAC TROMETHAMINE 15 MG/ML VIAL ONE (08:03)
[2023-04-07] MEDS ORDERED: ACETAMINOPHEN 325 MG TABLET ONE (08:04)
[2023-04-07] MEDS ORDERED: LORAZEPAM 1 MG TABLET ONE (08:04)
[2023-04-07 08:06] LABS: APPEARANCE,URINE CLEAR (CLEAR); BASOPHILS # (AUTO) 0.1 K/uL (0.0-0.2); BASOPHILS % (AUTO) 0.6 % (0.0-2.0); BILIRUBIN,URINE NEGATIVE (NEGATIVE); BLOOD, URINE NEGATIVE Ery/uL (NEGATIVE); COLOR,URINE YELLOW (YELLOW); EOSINOPHILS % (AUTO) 0.2 % (0.0-6.0); HEMATOCRIT 47 % (39-51); HEMOGLOBIN 16.3 g/dL (13.5-17.5); KETONES,URINE NEGATIVE (NEGATIVE); LEUKOCYTE ESTERASE ,URINE NEGATIVE (NEGATIVE); MEAN CORPUSCULAR HEMOGLOBIN 31 PG (26.0-33.0); MEAN CORPUSCULAR HGB CONC 35 g/dl (31.0-36.0); MEAN CORPUSCULAR VOLUME 89 fL (80-96); MONOCYTES # (AUTO) 0.9 K/uL (0.1-1.30); MONOCYTES % (AUTO) 8.9 % (2.0-12.0); NEUTROPHILS # (AUTO) 7.4 K/uL (1.8-8.9); NEUTROPHILS % (AUTO) 71.3 % (43.0-81.0); NITRITE, URINE NEGATIVE (NEGATIVE); PH,URINE 6.5 (5.0-8.0); PLATELET COUNT (AUTO) 386 K/uL (150-450); PROTEIN,URINE NEGATIVE (NEGATIVE); RED BLOOD CELL COUNT(AUTO) 5.25 MIL/uL (4.5-6.0); RED CELL DISTRIBUTION WIDTH 13.6 % (11.5-15.0); UGLUCOSE NEGATIVE (NEGATIVE); UROBILINOGEN,URINE 0.2 EU/dL (0.2); WHITE BLOOD COUNT (AUTO) 10.4 K/uL (4.3-11.0)
[2023-04-07 08:18] LABS: BARBITURATE, URINE NEGATIVE (NEGATIVE); BENZODIAZEPINE, URINE NEGATIVE (NEGATIVE); COCCAINE, URINE NEGATIVE (NEGATIVE); OPIATE, URINE NEGATIVE (NEGATIVE); PHENCYCLIDINE SCREEN,URINE NEGATIVE (NEGATIVE)
[2023-04-07 08:43] LABS: AMPHETAMINE, URINE POSITIVE (NEGATIVE); CANNABINOID, URINE POSITIVE (NEGATIVE)
[2023-04-07 08:58] LABS: SODIUM SERUM 139 mmol/L (136-145)
[2023-04-07 08:59] LABS: CALCIUM, SERUM 10.2 mg/dL (8.5-10.1); CARBON DIOXIDE 26 mmol/L (21-32); CHLORIDE 100 mmol/L (98-107); CREATININE 0.9 mg/dL (0.6-1.3); GLUCOSE 90 mg/dL (74-106); UREA NITROGEN, BLOOD 6 mg/dL (7-18)
[2023-04-07 09:00] LABS: ACETAMINOPHEN <10 ug/ml (10-30); ALANINE AMINOTRANSFERASE 45 U/L (12-78); ALBUMIN 4.4 g/dL (3.4-5.0); ALCOHOL, BLOOD 6 mg/dL (0-10); ALKALINE PHOSPHATASE 101 U/L (46-116); ASPARTATE AMINOTRANSFERASE 29 U/L (15-37); BILIRUBIN,DIRECT 0.1 mg/dL (0.0-0.2); BILIRUBIN,TOTAL 0.3 mg/dL (0.2-1.0); SALICYLATE 2.1 mg/dL (2.8-20.0); TOTAL PROTEIN, SERUM 9.2 g/dL (6.4-8.2)
[2023-04-07 09:18] VITALS: BP 156/98; TEMP 98.2; O2SAT 97
[2023-04-07] MEDS ORDERED: oxyCODONE IR immediate release 5 MG PO STA (09:52)
[2023-04-07] MEDS ORDERED: oxyCODONE IR immediate release 5 MG ONE (09:56)
[2023-04-07] MEDS ORDERED: HYDROCODONE/APAP 5/325MG TABLET PO ONE (10:30)
[2023-04-07] MEDS ORDERED: HYDROCODONE/APAP 5/325MG TABLET ONE (10:31)
== END 2023-04-07 11:50 ==
LOC: ER 07:31
DX: R45.851 Suicidal ideations (principal); M54.2 Cervicalgia; F23 Brief psychotic disorder; F15.10 Other stimulant abuse, uncomplicated; I10 Essential (primary) hypertension; F31.9 Bipolar disorder, unspecified; F17.200 Nicotine dependence, unspecified, uncomplicated; Z79.899 Other long term (current) drug therapy; Z59.00 Homelessness unspecified; Z88.0 Allergy status to penicillin
CPT/HCPCS: 99285; 96372; 85025; 80048; 80076; 81003; 36415; 80143; 80320; 80307; J1885; G0480

== ENCOUNTER 2023-08-25 18:46 | Emergency (ER) | payer OTHER ==
[~2023-08-25] VITALS: Ht 177.8 cm; Wt 86.2 kg
[2023-08-25 20:00] LABS: BASOPHILS # (AUTO) 0.1 K/uL (0.0-0.2); BASOPHILS % (AUTO) 1.2 % (0.0-2.0); EOSINOPHILS # (AUTO) 0.2 K/uL (0.0-0.7); EOSINOPHILS % (AUTO) 3.7 % (0.0-6.0); HEMATOCRIT 46 % (39-51); HEMOGLOBIN 15.6 g/dL (13.5-17.5); LYMPHOCYTES # (AUTO) 1.7 K/uL (0.8-4.8); LYMPHOCYTES % (AUTO) 32.9 % (20.0-44.0); MEAN CORPUSCULAR HEMOGLOBIN 31 PG (26.0-33.0); MEAN CORPUSCULAR HGB CONC 34 g/dl (31.0-36.0); MEAN CORPUSCULAR VOLUME 89 fL (80-96); MONOCYTES # (AUTO) 0.5 K/uL (0.1-1.30); MONOCYTES % (AUTO) 10.2 % (2.0-12.0); NEUTROPHILS # (AUTO) 2.7 K/uL (1.8-8.9); PLATELET COUNT (AUTO) 284 K/uL (150-450); RED BLOOD CELL COUNT(AUTO) 5.11 MIL/uL (4.5-6.0); WHITE BLOOD COUNT (AUTO) 5.2 K/uL (4.3-11.0)
[2023-08-25 20:13] LABS: CARBON DIOXIDE 31 mmol/L (21-32); CHLORIDE 105 mmol/L (98-107); GLUCOSE 100 mg/dL (74-106); POTASSIUM 3.7 mmol/L (3.5-5.1); SODIUM SERUM 142 mmol/L (136-145); UREA NITROGEN, BLOOD 5 mg/dL (7-18)
[2023-08-25 20:28] LABS: ALANINE AMINOTRANSFERASE 56 U/L (12-78); ALBUMIN 3.8 g/dL (3.4-5.0); ALKALINE PHOSPHATASE 121 U/L (46-116); ASPARTATE AMINOTRANSFERASE 35 U/L (15-37); BILIRUBIN,DIRECT 0.2 mg/dL (0.0-0.2); BILIRUBIN,TOTAL 0.5 mg/dL (0.2-1.0); SALICYLATE 1.2 mg/dL (2.8-20.0); TOTAL PROTEIN, SERUM 7.7 g/dL (6.4-8.2)
[2023-08-25 20:29] LABS: ACETAMINOPHEN < 2 ug/ml (10-30); ALCOHOL, BLOOD < 3 mg/dL (0-10)
[2023-08-25] MEDS ORDERED: SULF1TAB48 PO (21:43)
[2023-08-25] MEDS ORDERED: GABA-532 PO (21:43)
[2023-08-25] MEDS ORDERED: HYDR-4209 PO (21:43)
[2023-08-25] MEDS ORDERED: HYDROCODONE/APAP 5/325MG TABLET ONE (21:58)
[2023-08-25] MEDS ORDERED: SULFAMETH/TRIMETH 800/160 MG 1 UDTAB TABLET ONE (21:59)
[2023-08-25] MEDS: SULFAMETH/TRIMETH 800/160 MG 1 UDTAB TABLET PO ONE (22:04)
[2023-08-25] MEDS: HYDROCODONE/APAP 5/325MG TABLET PO ONE (22:05)
[2023-08-25 22:06] VITALS: BP 138/94; TEMP 208.4; O2SAT 98
== END 2023-08-25 22:07 | disposition home or self-care (01) ==
LOC: ER 18:51
DX: T69.022A Immersion foot, left foot, initial encounter (principal); T69.021A Immersion foot, right foot, initial encounter; G89.29 Other chronic pain; I10 Essential (primary) hypertension; F29 Unspecified psychosis not due to a substance or known physiological condition; F43.10 Post-traumatic stress disorder, unspecified; F31.9 Bipolar disorder, unspecified; F20.9 Schizophrenia, unspecified; F10.10 Alcohol abuse, uncomplicated; F19.10 Other psychoactive substance abuse, uncomplicated; F17.200 Nicotine dependence, unspecified, uncomplicated; Z88.0 Allergy status to penicillin; Z59.00 Homelessness unspecified; Z86.69 Personal history of other diseases of the nervous system and sense organs; Z87.81 Personal history of (healed) traumatic fracture; Y90.9 Presence of alcohol in blood, level not specified
CPT/HCPCS: 36415; 80048-TC; 80076-TC; 85025-TC; G0480

== ENCOUNTER 2023-09-27 07:03 | Emergency (ER) | payer MEDICAID, OTHER ==
[~2023-09-27] VITALS: Ht 170.2 cm; Wt 79.4 kg
[~2023-09-27 07:03] MED LIST changes: +GABA-532 PO; +HYDR-4209 PO; +SULF1TAB48 PO
[2023-09-27 07:17] VITALS: BP 148/86; TEMP 98.5; O2SAT 98
[2023-09-27] MEDS ORDERED: POLY10DR OP (07:30)
[2023-09-27] MEDS ORDERED: IBUPROFEN 600 MG TABLET ONE (07:33)
[2023-09-27] MEDS: IBUPROFEN 600 MG TABLET PO ONE (07:36)
== END 2023-09-27 07:37 | disposition home or self-care (01) ==
LOC: ER 07:08
DX: H10.9 Unspecified conjunctivitis (principal); I10 Essential (primary) hypertension; F20.9 Schizophrenia, unspecified; F31.9 Bipolar disorder, unspecified; F17.200 Nicotine dependence, unspecified, uncomplicated; Z79.899 Other long term (current) drug therapy; Z59.00 Homelessness unspecified; Z88.0 Allergy status to penicillin

== ENCOUNTER 2024-07-07 06:31 | Emergency (ER) | payer MEDICAID, OTHER ==
[~2024-07-07] VITALS: Ht 177.8 cm; Wt 81.6 kg
[~2024-07-07 06:31] MED LIST changes: +POLY10DR OP
[2024-07-07 07:31] VITALS: BP 155/113; TEMP 97.8; O2SAT 99
[2024-07-07] MEDS ORDERED: CLIN300C12 PO (07:49)
[2024-07-07] MEDS ORDERED: CETI-108 PO (07:49)
[2024-07-07] MEDS ORDERED: AMLO-213 PO (07:49)
[2024-07-07] MEDS ORDERED: ACETAMINOPHEN ES 500 MG TABLET ONE (07:53)
[2024-07-07] MEDS ORDERED: cetrizine 10 MG TABLET ONE (07:53)
[2024-07-07] MEDS ORDERED: CLINDAMYCIN HCL 150 MG CAPSULE ONE (07:54)
[2024-07-07] MEDS: CLINDAMYCIN HCL 150 MG CAPSULE PO ONE (07:59)
[2024-07-07] MEDS: ACETAMINOPHEN ES 500 MG TABLET PO ONE (07:59)
[2024-07-07] MEDS: cetrizine 10 MG TABLET PO ONE (07:59)
== END 2024-07-07 08:38 | disposition home or self-care (01) ==
LOC: ER 06:40
DX: F15.10 Other stimulant abuse, uncomplicated (principal); F17.200 Nicotine dependence, unspecified, uncomplicated; I10 Essential (primary) hypertension; Z59.00 Homelessness unspecified; Z79.899 Other long term (current) drug therapy; Z88.0 Allergy status to penicillin

== ENCOUNTER 2024-07-18 06:18 | Emergency (ER) | payer OTHER ==
[~2024-07-18] VITALS: Ht 177.8 cm; Wt 81.6 kg
[~2024-07-18 06:18] MED LIST changes: +CETI-108 PO; +CLIN300C12 PO
[2024-07-18 07:58] VITALS: BP 145/87; TEMP 97.7; O2SAT 98
== END 2024-07-18 07:58 | disposition home or self-care (01) ==
LOC: ER 06:20
DX: F15.10 Other stimulant abuse, uncomplicated (principal); E86.0 Dehydration; F17.200 Nicotine dependence, unspecified, uncomplicated; I10 Essential (primary) hypertension; Z59.00 Homelessness unspecified; Z79.899 Other long term (current) drug therapy; Z88.0 Allergy status to penicillin

== ENCOUNTER 2024-11-03 18:51 | Emergency (ER) | payer OTHER ==
[~2024-11-03] VITALS: Ht 177.8 cm; Wt 81.6 kg
[2024-11-03] MEDS ORDERED: ONDANSETRON 4 MG TAB.RAPDIS ONE (20:42)
[2024-11-03] MEDS ORDERED: CEFTRIAXONE 500 MG VIAL ONE (20:42)
[2024-11-03] MEDS ORDERED: HYDROCODONE/APAP 5/325MG TABLET ONE (20:42)
[2024-11-03] MEDS ORDERED: LIDOCAINE 1% INJ 50 ML MDV IJ ONE (20:45)
[2024-11-03] MEDS: CEFTRIAXONE 500 MG VIAL IM ONE (20:54)
[2024-11-03] MEDS: HYDROCODONE/APAP 5/325MG TABLET PO ONE (20:56)
[2024-11-03] MEDS: ONDANSETRON 4 MG TAB.RAPDIS SL ONE (20:56)
[2024-11-03 21:23] VITALS: BP 125/85; TEMP 98.1; O2SAT 95
== END 2024-11-03 21:25 | disposition home or self-care (01) ==
LOC: ER 18:56
DX: G89.29 Other chronic pain (principal); R09.81 Nasal congestion; R11.0 Nausea; J34.89 Other specified disorders of nose and nasal sinuses; F17.200 Nicotine dependence, unspecified, uncomplicated; I10 Essential (primary) hypertension; Z59.00 Homelessness unspecified; Z79.899 Other long term (current) drug therapy; Z88.0 Allergy status to penicillin; Z87.39 Personal history of other diseases of the musculoskeletal system and connective tissue
CPT/HCPCS: 99283; 96372; J3490; J0696; Q0162

== ENCOUNTER 2024-11-05 02:05 | Emergency (ER) | payer MEDICAID, OTHER ==
[~2024-11-05] VITALS: Ht 177.8 cm; Wt 81.6 kg
[2024-11-05] MEDS ORDERED: ACET-3102 PO (05:13)
[2024-11-05] MEDS ORDERED: ONDA4TAB5 PO (05:13)
[2024-11-05] MEDS ORDERED: ONDANSETRON 4 MG TAB.RAPDIS ONE (05:27)
[2024-11-05] MEDS: ONDANSETRON 4 MG TAB.RAPDIS PO ONE (05:29)
[2024-11-05 06:50] VITALS: BP 135/68; TEMP 98.4; O2SAT 97
== END 2024-11-05 06:51 | disposition home or self-care (01) ==
LOC: ER 02:08
DX: R11.2 Nausea with vomiting, unspecified (principal); R19.7 Diarrhea, unspecified; F17.200 Nicotine dependence, unspecified, uncomplicated; F20.9 Schizophrenia, unspecified; I10 Essential (primary) hypertension; Z59.00 Homelessness unspecified; Z79.899 Other long term (current) drug therapy; Z88.0 Allergy status to penicillin
CPT/HCPCS: 99283; Q0162

== ENCOUNTER 2024-11-09 06:41 | Emergency (ER) | payer MEDICAID ==
[~2024-11-09] VITALS: Ht 177.8 cm; Wt 81.6 kg
[~2024-11-09 06:41] MED LIST changes: +ACET-3102 PO
[2024-11-09] MEDS ORDERED: IBUP-1955 PO (07:19)
[2024-11-09] MEDS ORDERED: CIPR-262 PO (07:19)
[2024-11-09] MEDS ORDERED: ONDANSETRON 4 MG TAB.RAPDIS SL ONE (07:30)
[2024-11-09] MEDS ORDERED: KETOROLAC TROMETHAMINE 15 MG/ML VIAL IM ONE (07:30)
[2024-11-09] MEDS ORDERED: ONDANSETRON 4 MG TAB.RAPDIS ONE (07:32)
[2024-11-09] MEDS ORDERED: KETOROLAC TROMETHAMINE 15 MG/ML VIAL ONE (07:32)
[2024-11-09 07:37] VITALS: BP 121/81; TEMP 98.4; O2SAT 99
== END 2024-11-09 07:37 | disposition home or self-care (01) ==
LOC: ER 06:41
DX: K52.9 Noninfective gastroenteritis and colitis, unspecified (principal); R11.2 Nausea with vomiting, unspecified; G89.29 Other chronic pain; F15.10 Other stimulant abuse, uncomplicated; F17.200 Nicotine dependence, unspecified, uncomplicated; F20.9 Schizophrenia, unspecified; F31.9 Bipolar disorder, unspecified; I10 Essential (primary) hypertension; Z59.00 Homelessness unspecified; Z79.899 Other long term (current) drug therapy; Z88.0 Allergy status to penicillin
CPT/HCPCS: J1885; Q0162

== ENCOUNTER 2024-11-17 01:51 | Emergency (ER) | payer MEDICAID ==
[~2024-11-17] VITALS: Ht 170.2 cm; Wt 81.6 kg
[~2024-11-17 01:51] MED LIST changes: +CIPR-262 PO; +IBUP-1955 PO
[2024-11-17] MEDS: IV NS 0.9% 500 ML BAG IV ONE (04:41)
[2024-11-17 04:45] LABS: PLATELET COUNT (AUTO) 243 K/uL (150-450); RED BLOOD CELL COUNT(AUTO) 4.79 MIL/uL (4.5-6.0); RED CELL DISTRIBUTION WIDTH 15.0 % (11.5-15.0); WHITE BLOOD COUNT (AUTO) 5.7 K/uL (4.3-11.0)
[2024-11-17 04:51] LABS: CALCIUM, SERUM 8.3 mg/dL (8.5-10.1); CREATININE 0.7 mg/dL (0.6-1.3); SODIUM SERUM 139.0 mmol/L (136-145); UREA NITROGEN, BLOOD 7.0 mg/dL (7-18)
[2024-11-17 04:56] LABS: ASPARTATE AMINOTRANSFERASE 27.0 U/L (15-37); TOTAL PROTEIN, SERUM 6.9 g/dL (6.4-8.2)
[2024-11-17 05:44] LABS: APPEARANCE,URINE CLEAR (CLEAR); BLOOD, URINE NEGATIVE Ery/uL (NEGATIVE); LEUKOCYTE ESTERASE ,URINE NEGATIVE (NEGATIVE); NITRITE, URINE NEGATIVE (NEGATIVE); UGLUCOSE NEGATIVE (NEGATIVE)
[2024-11-17 05:57] LABS: ADD URINE CULTURE NO; SQUAMOUS EPITHELIAL CELL,UR Rare /HPF (None Seen)
[2024-11-17 06:42] VITALS: BP 128/89; TEMP 98.3; O2SAT 99
== END 2024-11-17 06:43 | disposition home or self-care (01) ==
LOC: ER 01:54
DX: K59.00 Constipation, unspecified (principal); R10.9 Unspecified abdominal pain; R11.0 Nausea; I10 Essential (primary) hypertension; F20.9 Schizophrenia, unspecified; F17.200 Nicotine dependence, unspecified, uncomplicated; Z59.00 Homelessness unspecified; Z79.899 Other long term (current) drug therapy; Z88.0 Allergy status to penicillin
CPT/HCPCS: 99284; 74176; 96360; 85025; 80048; 83690; 80076; 81001; 36415; J7040

== ENCOUNTER 2024-12-31 23:18 | Emergency (ER) | payer MEDICAID ==
[~2024-12-31] VITALS: Ht 162.6 cm; Wt 83.9 kg
[2025-01-01] MEDS ORDERED: DOXY-326 PO (00:03)
[2025-01-01] MEDS ORDERED: DOXYCYCLINE HYCLATE (100 MG) 100 MG TABLET ONE (00:07)
[2025-01-01] MEDS: DOXYCYCLINE HYCLATE (100 MG) 100 MG TABLET PO ONE (00:12)
[2025-01-01 00:18] VITALS: BP 140/82; TEMP 98.1; O2SAT 97
== END 2025-01-01 00:19 | disposition home or self-care (01) ==
LOC: ER 23:33
DX: T69.029A Immersion foot, unspecified foot, initial encounter (principal); I10 Essential (primary) hypertension; E11.9 Type 2 diabetes mellitus without complications; Z59.00 Homelessness unspecified; Z79.899 Other long term (current) drug therapy; Z88.0 Allergy status to penicillin; W57.XXXA Bitten or stung by nonvenomous insect and other nonvenomous arthropods, initial encounter; Y93.89 Activity, other specified; Y92.89 Other specified places as the place of occurrence of the external cause; Y99.8 Other external cause status

== ENCOUNTER 2025-01-06 03:37 | Emergency (ER) | payer SELFPAY ==
[~2025-01-06] VITALS: Ht 170.2 cm; Wt 99.8 kg
[~2025-01-06 03:37] MED LIST changes: +DOXY-326 PO
[2025-01-06 04:27] VITALS: BP 156/98; TEMP 98.6; O2SAT 98
[2025-01-06] MEDS ORDERED: IBUP-2314 PO (04:32)
[2025-01-06] MEDS ORDERED: ONDA4TAB5 PO (04:32)
[2025-01-06] MEDS ORDERED: ACETAMINOPHEN ES 500 MG TABLET ONE (04:35)
[2025-01-06] MEDS: NAPROXEN 250 MG TABLET PO ONE (04:36)
[2025-01-06] MEDS ORDERED: ONDANSETRON 4 MG TAB.RAPDIS ONE (04:36)
[2025-01-06] MEDS: ONDANSETRON 4 MG TAB.RAPDIS PO ONE (04:36)
[2025-01-06] MEDS: ACETAMINOPHEN ES 500 MG TABLET PO ONE (04:36)
[2025-01-06] MEDS ORDERED: NAPROXEN 250 MG TABLET ONE (04:36)
== END 2025-01-06 04:49 | disposition home or self-care (01) ==
LOC: ER 03:42
DX: R11.0 Nausea (principal); M54.2 Cervicalgia; F19.10 Other psychoactive substance abuse, uncomplicated; I10 Essential (primary) hypertension; Z59.00 Homelessness unspecified; Z79.899 Other long term (current) drug therapy; Z88.0 Allergy status to penicillin
CPT/HCPCS: 99284; Q0162

== ENCOUNTER 2025-01-11 17:48 | Emergency (ER) | payer SELFPAY ==
[~2025-01-11] VITALS: Ht 177.8 cm; Wt 79.4 kg
[~2025-01-11 17:48] MED LIST changes: +IBUP-2314 PO
[2025-01-11 19:26] VITALS: BP 151/111; TEMP 97.7; O2SAT 98
[2025-01-11] MEDS ORDERED: DOXY100C2 PO (19:59)
[2025-01-11] MEDS ORDERED: KETOROLAC TROMETHAMINE 15 MG/ML VIAL ONE (20:06)
[2025-01-11] MEDS ORDERED: dexaMETHasone SOD PHOSPHATE 1 ML ONE (20:06)
[2025-01-11] MEDS ORDERED: ONDANSETRON 4 MG TAB.RAPDIS ONE (20:07)
[2025-01-11] MEDS: ONDANSETRON HCL 4 MG/5 ML SOLUTION PO ONE (20:16)
[2025-01-11] MEDS: KETOROLAC TROMETHAMINE 15 MG/ML VIAL IM ONE (20:16)
[2025-01-11] MEDS: dexaMETHasone SOD PHOSPHATE 4 MG/ML VIAL IM ONE (20:16)
== END 2025-01-11 22:10 | disposition home or self-care (01) ==
LOC: ER 18:07
DX: J01.90 Acute sinusitis, unspecified (principal); G89.29 Other chronic pain; I10 Essential (primary) hypertension; Z59.00 Homelessness unspecified; Z79.899 Other long term (current) drug therapy; Z88.0 Allergy status to penicillin
CPT/HCPCS: 99284; 96372 ×2; J1885; J1100; Q0162

== ENCOUNTER 2025-01-20 06:35 | Emergency (ER) | payer SELFPAY ==
[~2025-01-20 06:35] MED LIST changes: +DOXY100C2 PO
== END 2025-01-20 07:57 | disposition left against medical advice (07) ==
LOC: ER 06:42
DX: Z53.21 Procedure and treatment not carried out due to patient leaving prior to being seen by health care provider (principal)

== ENCOUNTER 2025-01-25 04:19 | Emergency (ER) | payer SELFPAY ==
[~2025-01-25] VITALS: Ht 177.8 cm; Wt 79.4 kg
[2025-01-25 06:08] VITALS: BP 141/74; TEMP 98; O2SAT 99
== END 2025-01-25 06:20 | disposition home or self-care (01) ==
LOC: ER 04:30
DX: R23.4 Changes in skin texture (principal); I10 Essential (primary) hypertension; Z79.899 Other long term (current) drug therapy; Z88.0 Allergy status to penicillin

== ENCOUNTER 2025-02-11 05:54 | Emergency (ER) | payer MEDICAID ==
[~2025-02-11] VITALS: Ht 177.8 cm; Wt 79.4 kg
[2025-02-11] MEDS ORDERED: OFLO5DRO6 RIGHTEYE (06:55)
[2025-02-11 07:00] VITALS: BP 140/88; TEMP 98; O2SAT 98
== END 2025-02-11 07:04 | disposition home or self-care (01) ==
LOC: ER 05:58
DX: H10.9 Unspecified conjunctivitis (principal); I10 Essential (primary) hypertension; Z79.899 Other long term (current) drug therapy; Z88.0 Allergy status to penicillin

== ENCOUNTER 2025-02-15 23:08 | Emergency (ER) | payer MEDICAID ==
[~2025-02-15] VITALS: Ht 170.2 cm; Wt 77.1 kg
[~2025-02-15 23:08] MED LIST changes: +OFLO5DRO6 RIGHTEYE
[2025-02-16 02:41] VITALS: BP 149/80; TEMP 98.4; O2SAT 98
== END 2025-02-16 03:58 | disposition home or self-care (01) ==
LOC: ER 23:11
DX: F22 Delusional disorders (principal); M54.2 Cervicalgia; I10 Essential (primary) hypertension; G89.29 Other chronic pain; F15.10 Other stimulant abuse, uncomplicated; Z59.00 Homelessness unspecified; Z79.899 Other long term (current) drug therapy; Z88.0 Allergy status to penicillin

== ENCOUNTER 2025-03-03 02:38 | Emergency (ER) | payer MEDICAID ==
[~2025-03-03] VITALS: Ht 177.8 cm; Wt 79.4 kg
[2025-03-03 03:35] VITALS: BP 148/105; TEMP 98.7; O2SAT 96
== END 2025-03-03 03:49 | disposition home or self-care (01) ==
LOC: ER 02:43
DX: R09.89 Other specified symptoms and signs involving the circulatory and respiratory systems (principal); I10 Essential (primary) hypertension; Z79.899 Other long term (current) drug therapy; Z88.0 Allergy status to penicillin

== ENCOUNTER 2025-03-09 00:57 | Emergency (ER) | payer MEDICAID ==
[~2025-03-09] VITALS: Ht 177.8 cm; Wt 79.4 kg
[2025-03-09 02:38] VITALS: BP 144/74; TEMP 98
[2025-03-09] MEDS ORDERED: FLUT16SP16 BNOSTRILS (03:18)
[2025-03-09 03:24] VITALS: O2SAT 98
== END 2025-03-09 03:25 | disposition home or self-care (01) ==
LOC: ER 00:58
DX: F22 Delusional disorders (principal); J31.0 Chronic rhinitis; I10 Essential (primary) hypertension; F15.10 Other stimulant abuse, uncomplicated; Z88.0 Allergy status to penicillin; Z79.899 Other long term (current) drug therapy

== ENCOUNTER 2025-03-29 05:54 | Emergency (ER) | payer MEDICAID ==
[~2025-03-29] VITALS: Ht 177.8 cm; Wt 75.7 kg
[~2025-03-29 05:54] MED LIST changes: +FLUT16SP16 BNOSTRILS
[2025-03-29 07:47] VITALS: BP 142/98; TEMP 98
[2025-03-29] MEDS ORDERED: LEVO750T46 PO (09:06)
[2025-03-29] MEDS ORDERED: LEVOFLOXACIN (250MG) 250 MG TABLET ONE (09:09)
[2025-03-29] MEDS ORDERED: TRAMADOL HCL 50 MG TABLET ONE (09:09)
[2025-03-29] MEDS: TRAMADOL HCL 50 MG TABLET PO ONE (09:18)
[2025-03-29] MEDS: LEVOFLOXACIN (250MG) 250 MG TABLET PO ONE (09:18)
[2025-03-29 09:23] VITALS: O2SAT 98
== END 2025-03-29 09:24 | disposition home or self-care (01) ==
LOC: ER 05:56
DX: J32.9 Chronic sinusitis, unspecified (principal); G89.29 Other chronic pain; M54.50 Low back pain, unspecified; I10 Essential (primary) hypertension; Z59.00 Homelessness unspecified; Z79.899 Other long term (current) drug therapy; Z88.0 Allergy status to penicillin

== ENCOUNTER 2025-04-02 06:40 | Emergency (ER) | payer MEDICAID ==
[~2025-04-02] VITALS: Ht 177.8 cm; Wt 77.1 kg
[~2025-04-02 06:40] MED LIST changes: +LEVO750T46 PO
[2025-04-02 07:39] VITALS: BP 135/86; TEMP 98.8; O2SAT 97
[2025-04-02] MEDS ORDERED: IBUP-1490 PO (07:50)
[2025-04-02] MEDS ORDERED: CLOT15CR27 TP (07:50)
== END 2025-04-02 08:23 | disposition home or self-care (01) ==
LOC: ER 06:45
DX: B35.3 Tinea pedis (principal); J32.9 Chronic sinusitis, unspecified; G89.29 Other chronic pain; I10 Essential (primary) hypertension; Z59.00 Homelessness unspecified; Z76.5 Malingerer [conscious simulation]; Z79.899 Other long term (current) drug therapy; Z88.0 Allergy status to penicillin